=== PATIENT | female | born 1965 | race Caucasian/White ===

== ENCOUNTER 2017-01-17 17:21 | Emergency (ER) | payer BC ==
[2017-01-17 17:36] VITALS: BP 137/95
[2017-01-17] MEDS ORDERED: Sodium Chloride 0.9% 1,000 ML IV ONE (18:40)
[2017-01-17] MEDS ORDERED: Ondansetron 4 MG/2 ML SDV IVPUSH ONE (18:40)
[2017-01-17] MEDS ORDERED: Sodium Chloride 0.9% 10 ML Syringe FLUSH PRN (18:40)
[2017-01-17] MEDS ORDERED: Dicyclomine 10 MG Cap PO ONE (18:40)
--- NOTE | 2017-01-17 18:41 | EDM.PDOC ---
ED HPI GENERAL MEDICAL PROBLEM - General Chief Complaint: Abdominal Pain Stated Complaint: IBS Time Seen by Provider: 01/17/17 18:26 Source of Information: Reports: Patient History Limitations: Reports: No Limitations - History of Present Illness INITIAL COMMENTS - FREE TEXT/NARRATIVE: Patient is a 51-year-old female with history of IBS who presents to the ED complaining of abdominal cramping, nausea, and diarrhea today. Patient states symptoms started around 1:30 this afternoon and have progressively worsened. She took one levsin with no relief. Patient states over the past week she's had 2 additional episodes. She is complaining of generalized cramping with 5 episodes of diarrhea today. She's had no blood present. She is mildly dehydrated although her urine color is light yellow in color. She is very nauseated and has had little oral intake. Symptoms are consistent with previous episodes of IBS flareups. Denies fever/chills, shortness of breath, chest pain, emesis, pain with urination, dizziness, or any additional complaints. Lower Abdomen Pain Score (Numeric/FACES): 4 - Related Data Allergies Allergy/AdvReac Type Severity Reaction Status Date / Time No Known Allergies Allergy Verified 01/17/17 17:36 Home Meds: Home Meds DULoxetine HCl [Cymbalta] 60 mg PO DAILY 06/22/14 [History] Hyoscyamine Sulfate [Hyoscyamine Sulfate] 0.125 mg SL Q4H PRN 06/23/14 [History] Chlorthalidone 25 mg PO DAILY 11/23/14 [History] DULoxetine [Cymbalta] 30 mg PO DAILY 11/23/14 [History] Potassium Chloride [Klor-Con M20] 20 meq PO DAILY 09/12/15 [History] buPROPion [Wellbutrin XL] 150 mg PO DAILY 10/19/16 [History] Dicyclomine HCl [Bentyl] 10 mg PO TID PRN #10 capsule 01/17/17 [Rx] Ondansetron [Zofran ODT] 4 mg PO Q6H PRN #10 tab.dis 01/17/17 [Rx] Past Medical History HEENT History: Reports: Cataract Cardiovascular History: Reports: Hypertension Gastrointestinal History: Reports: Irritable Bowel Syndrome 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 History: Reports: Endometriosis Musculoskeletal History: Reports: Osteoarthritis Psychiatric History: Reports: Anxiety, Depression - Past Surgical History HEENT Surgical History: Reports: Cataract Surgery, Other (See Below) Musculoskeletal Surgical History: Reports: Arthroscopic Knee, Shoulder Surgery Social & Family History - Tobacco Use Smoking Status *Q: Current Some Day Smoker Years of Tobacco use: 25 Packs/Tins Daily: 0.1 Used Tobacco, but Quit: No Second Hand Smoke Exposure: Yes - Caffeine Use Caffeine Use: Reports: Coffee, Soda - Alcohol Use Days Per Week of Alcohol Use: 0 - Recreational Drug Use Recreational Drug Use: No Drug Use in Last 12 Months: No - Living Situation & Occupation Living situation: Reports: , with Family ED ROS GENERAL - Review of Systems Review Of Systems: ROS reveals no pertinent complaints other than HPI. ED EXAM, GI/ABD - Physical Exam Exam: See Below Exam Limited By: No Limitations General Appearance: Alert, WD/WN, No Apparent Distress Ears: Hearing Grossly Normal Nose: Normal Inspection Throat/Mouth: Normal Inspection, Normal Oropharynx, Normal Voice, No Airway Compromise Neck: Normal Inspection, Supple Respiratory/Chest: No Respiratory Distress, Lungs Clear, Normal Breath Sounds, Chest Non-Tender Cardiovascular: Normal Peripheral Pulses, Regular Rate, Rhythm GI/Abdominal: Soft, Non-Tender, No Organomegaly, No Distention, Hyperactive Bowel Sounds. No: McBurney's Sign, Bolanos's Sign Back Exam: Normal Inspection. No: CVA Tenderness (L), CVA Tenderness (R) Neurological: Alert, Oriented, CN II-XII Intact, Normal Cognition, No Motor/ Sensory Deficits Psychiatric: Normal Affect, Normal Mood Skin Exam: Warm, Dry, Intact, Normal Color Course - Vital Signs Last Recorded V/S: Last Vital Signs Temp 98.2 F 01/17/17 17:31 Pulse 89 01/17/17 17:31 Resp 16 01/17/17 17:31 BP 137/95 H 01/17/17 17:31 Pulse Ox 99 01/17/17 17:31 - Orders/Labs/Meds Orders: Active Orders 24 hr Category Date Time Status Peripheral IV Care [RC] . DIRECTED Care 01/17/17 18:40 Active Abdomen 2V AP Flat Upright [CR] Stat Exams 01/17/17 18:40 Taken Sodium Chloride 0.9% [Saline Flush] Med 01/17/17 18:40 Active 10 ml FLUSH ASDIRECTED PRN Peripheral IV Insertion Adult [OM.PC] Stat Oth 01/17/17 18:40 Ordered Medication Orders Sodium Chloride (Saline Flush) 10 ml FLUSH ASDIRECTED PRN PRN Reason: Keep Vein Open Last Admin: 01/17/17 18:49 Dose: 10 ml Labs: Laboratory Tests 01/17/17 01/17/17 01/17/17 Range/Units 17:40 17:40 19:12 WBC 12.65 H (3.98-10.04) K/mm3 RBC 4.85 (3.98-5.22) M/mm3 Hgb 14.0 (11.2-15.7) gm/L Hct 39.9 (34.1-44.9) % MCV 82.3 (79.4-94.8) fl MCH 28.9 (25.6-32.2) pg MCHC 35.1 (32.2-35.5) g/dl RDW Std Deviation 38.8 (36.4-46.3) fL Plt Count 415 H (182-369) K/mm3 MPV 10.0 (9.4-12.3) fl Neut % (Auto) 71.0 (34.0-71.1) % Lymph % (Auto) 18.7 L (19.3-51.7) % [place] % (Auto) 7.2 (4.7-12.5) % Eos % (Auto) 2.5 (0.7-5.8) Baso % (Auto) 0.4 (0.1-1.2) % Neut # (Auto) 8.98 H (1.56-6.13) K/mm3 Lymph # (Auto) 2.36 (1.18-3.74) K/mm3 [place] # (Auto) 0.91 H (0.24-0.36) K/mm3 Eos # (Auto) 0.32 (0.04-0.36) K/mm3 Baso # (Auto) 0.05 (0.01-0.08) K/mm3 Sodium 135 L (136-145) mEq/L Potassium 3.1 L (3.5-5.1) mEq/L Chloride 97 L (98-107) mEq/L Carbon Dioxide 23 (21-32) mEq/L Anion Gap 18.1 H (5-15) BUN 16 (7-18) mg/dL Creatinine 1.0 (0.55-1.02) mg/dL Est Cr Clr Drug Dosing 59.22 mL/min Estimated GFR (MDRD) 58 (>60) mL/min BUN/Creatinine Ratio 16.0 (14-18) Glucose 95 (74-106) mg/dL Calcium 9.2 (8.5-10.1) mg/dL Total Bilirubin 0.4 (0.2-1.0) mg/dL AST 25 (15-37) U/L ALT 34 (14-59) U/L Alkaline Phosphatase 76 (46-116) U/L C-Reactive Protein 0.5 (<1.0) mg/dL Total Protein 7.9 (6.4-8.2) g/dl Albumin 4.3 (3.4-5.0) g/dl Globulin 3.6 gm/dL Albumin/Globulin Ratio 1.2 (1-2) Lipase 64 L (73-393) U/L Urine Color Yellow (Yellow) Urine Appearance Clear (Clear) Urine pH 6.0 (5.0-8.0) Ur Specific [place] 1.015 (1.005-1.030) Urine Protein Negative (Negative) Urine Glucose (UA) Negative (Negative) Urine Ketones Negative (Negative) Urine Occult Blood Trace-intact H (Negative) Urine Nitrite Negative (Negative) Urine Bilirubin Negative (Negative) Urine Urobilinogen 0.2 (0.2-1.0) Ur Leukocyte Esterase Negative (Negative) Urine RBC 0-5 (0-5) /hpf Urine WBC 0-5 (0-5) /hpf Ur Epithelial Cells Not Reportable Ur Squamous Epith Cells 0-5 (0-5) /hpf Urine Bacteria Rare (FEW) /hpf Urine Mucus Not seen (FEW) /hpf Meds: Medications Generic Name Dose Route Start Last Admin Trade Name Freq PRN Reason Stop Dose Admin Sodium Chloride 10 ml 01/17/17 18:40 01/17/17 18:49 Saline Flush FLUSH 10 ml ASDIRECTED PRN Administration Keep Vein Open Discontinued Medications Generic Name Dose Route Start Last Admin Trade Name Freq PRN Reason Stop Dose Admin Dicyclomine HCl 20 mg 01/17/17 18:40 01/17/17 18:48 Bentyl PO 01/17/17 18:41 20 mg ONETIME ONE Administration Sodium Chloride 1,000 mls @ 999 mls/hr 01/17/17 18:40 01/17/17 18:47 Normal Saline IV 01/17/17 19:40 999 mls/hr ONETIME ONE Administration Ondansetron HCl 4 mg 01/17/17 18:40 01/17/17 18:48 Zofran IVPUSH 01/17/17 18:41 4 mg ONETIME ONE Administration Potassium Chloride 40 meq 01/17/17 20:57 01/17/17 21:17 Klor-Con M20 PO 01/17/17 20:58 40 meq ONETIME ONE Administration - Re-Assessments/Exams Free Text/Narrative Re-Assessment/Exam: 01/17/17 18:42 Ordered peripheral IV with normal saline 1000 mL, Bentyl 20 mg p.o., Zofran 4 mg IVP, CBC, chem 14, lipase, CRP, UA, and abdominal x-ray flat and upright. Abdominal xray reviewed with Dr. Jones, non specific air and stool pattern. No ileus present. Labs reviewed: WBC 12.65, sodium 135, potassium 3.1, creatinine 1.0, CRP less than 0.5, lipase 64, UA negative. 2058 Reassessment, pain and nausea was significantly improved with the above therapies. We'll discharge patient home pressure for Zofran and Bentyl. Departure - Departure Time of Disposition: 21:00 Disposition: Home, Self-Care 01 Condition: good Clinical Impression: Nausea, Hypokalemia IBS (irritable bowel syndrome) Qualifiers: Irritable bowel syndrome type: with diarrhea Qualified Code(s): K58.0 - Irritable bowel syndrome with diarrhea Abdominal pain Qualifiers: Abdominal location: generalized Qualified Code(s): R10.84 - Generalized abdominal pain - Discharge Information Prescriptions: Dicyclomine HCl [Bentyl] 10 mg PO TID PRN #10 capsule PRN Reason: Abdominal Pain Ondansetron [Zofran ODT] 4 mg PO Q6H PRN #10 tab.dis PRN Reason: Nausea Instructions: Abdominal Pain, Adult, [id number], Nausea and Vomiting, Adult, [id number] Referrals: Amanda Greco MD [Primary Care Provider] - Forms: ED Department Discharge Additional Instructions: Take the Bentyl and Zofran as prescribed. Advance diet as tolerated. Push fluids. Followup with primary care provider this coming week for reevaluation and treatment. Return to the ED for any new or worsening symptoms. - My Orders Last 24 Hours: My Active Orders 01/17/17 18:40 Peripheral IV Care [RC] . DIRECTED Abdomen 2V AP Flat Upright [CR] Stat Sodium Chloride 0.9% [Saline Flush] 10 ml FLUSH ASDIRECTED PRN Peripheral IV Insertion Adult [OM.PC] Stat - Assessment/Plan Last 24 Hours: My Active Orders 01/17/17 18:40 Peripheral IV Care [RC] . DIRECTED Abdomen 2V AP Flat Upright [CR] Stat Sodium Chloride 0.9% [Saline Flush] 10 ml FLUSH ASDIRECTED PRN Peripheral IV Insertion Adult [OM.PC] Stat
[2017-01-17] MEDS ORDERED: Potassium Chloride 20 MEQ Tab.ER PO ONE (20:57)
--- NOTE | 2017-01-19 07:40 | CR ---
Abdomen: Supine and upright views of the abdomen were obtained. Comparison: Previous abdominal x-ray of 10/19/16. Bowel gas pattern appears normal. No abnormal calcifications or soft tissue abnormality is seen. Bony structures appear within normal limits for the patient's age. Impression: 1. Nothing acute is identified on two-view abdominal x-ray. Diagnostic code #1
== END 2017-01-17 21:20 | disposition home or self-care (01) ==
LOC: JD.ED 17:21
DX: K58.0 Irritable bowel syndrome with diarrhea (principal); R11.0 Nausea; E87.6 Hypokalemia; I10 Essential (primary) hypertension; F41.8 Other specified anxiety disorders; F17.210 Nicotine dependence, cigarettes, uncomplicated; Z98.49 Cataract extraction status, unspecified eye; Z98.890 Other specified postprocedural states; Z79.899 Other long term (current) drug therapy
CPT/HCPCS: 36415; 74020; 80053; 81001; 83690; 85025; 86140; 96361; 96374; 99284; A9270; J2405; J7040; J7050

== ENCOUNTER 2017-06-17 14:58 | Emergency (ER) | payer BC ==
[2017-06-17 15:16] VITALS: BP 139/97
[2017-06-17] MEDS ORDERED: Lidocaine 1% 50 ML MDV INJECT ONE (15:40)
[2017-06-17] MEDS ORDERED: Diphtheria,Pertussis(Acell),Tetanus Vaccine 0.5 ML SDV IM ONE (16:40)
--- NOTE | 2017-06-17 16:45 | EDM.PDOC ---
ED HPI GENERAL MEDICAL PROBLEM - General Chief Complaint: Upper Extremity Injury/Pain Stated Complaint: CUT LEFT THUMB Time Seen by Provider: 06/17/17 15:36 Source of Information: Reports: Patient History Limitations: Reports: No Limitations - History of Present Illness INITIAL COMMENTS - FREE TEXT/NARRATIVE: The patient presents with a laceration to her left thumb. The patient cut it on a knife on Friday. Since then it has opened up many times. She is right handed. She is unsure of her tetanus. Onset: Sudden Duration: Day(s): (4) Location: Reports: Upper Extremity, Left (Thumb) Quality: Reports: Sharp Severity: Mild Improves with: Reports: None Worsens with: Reports: None Context: Reports: Activity (Cut it on a knife) Associated Symptoms: Reports: No Other Symptoms Left Hand Pain Score (Numeric/FACES): 1 - Related Data Allergies Allergy/AdvReac Type Severity Reaction Status Date / Time No Known Allergies Allergy Verified 06/17/17 15:09 Home Meds: Home Meds DULoxetine HCl [Cymbalta] 60 mg PO DAILY 06/22/14 [History] Hyoscyamine Sulfate [Hyoscyamine Sulfate] 0.125 mg SL Q4H PRN 06/23/14 [History] Chlorthalidone 25 mg PO DAILY 11/23/14 [History] DULoxetine [Cymbalta] 30 mg PO DAILY 11/23/14 [History] Potassium Chloride [Klor-Con M20] 20 meq PO DAILY 09/12/15 [History] buPROPion [Wellbutrin XL] 150 mg PO DAILY 10/19/16 [History] Dicyclomine HCl [Bentyl] 10 mg PO TID PRN #10 capsule 01/17/17 [Rx] Ondansetron [Zofran ODT] 4 mg PO Q6H PRN #10 tab.dis 01/17/17 [Rx] ALPRAZolam [Alprazolam] 06/17/17 [History] Cephalexin [Keflex] 500 mg PO Q6HR #20 cap 06/17/17 [Rx] ClonazePAM [KlonoPIN] 0.25 mg PO TID 06/17/17 [History] Diazepam [Valium] 10 mg PO ASDIRECTED PRN 06/17/17 [History] Past Medical History HEENT History: Reports: Cataract Cardiovascular History: Reports: Hypertension Gastrointestinal History: Reports: Irritable Bowel Syndrome 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: Reports: Endometriosis Musculoskeletal History: Reports: Osteoarthritis Psychiatric History: Reports: Anxiety, Depression - Past Surgical History HEENT Surgical History: Reports: Cataract Surgery, Other (See Below) Musculoskeletal Surgical History: Reports: Arthroscopic Knee, Shoulder Surgery Social & Family History - Tobacco Use Smoking Status *Q: Current Some Day Smoker Years of Tobacco use: 25 Packs/Tins Daily: 0.1 Used Tobacco, but Quit: No Second Hand Smoke Exposure: Yes - Caffeine Use Caffeine Use: Reports: Coffee, Soda - Alcohol Use Days Per Week of Alcohol Use: 0 - Recreational Drug Use Recreational Drug Use: No Drug Use in Last 12 Months: No - Living Situation & Occupation Living situation: Reports: , with Family Review of Systems - Review of Systems Review Of Systems: See Below Constitutional: Reports: No Symptoms Eyes: Reports: No Symptoms Ears: Reports: No Symptoms Nose: Reports: No Symptoms Mouth/Throat: Reports: No Symptoms Respiratory: Reports: No Symptoms Cardiovascular: Reports: No Symptoms GI/Abdominal: Reports: No Symptoms Genitourinary: Reports: No Symptoms Musculoskeletal: Reports: Other (Laceration left thumb) ED EXAM, GENERAL - Physical Exam Exam: See Below Exam Limited By: No Limitations General Appearance: Alert, No Apparent Distress Ears: Normal External Exam Nose: Normal Inspection Head: Atraumatic, Normocephalic Respiratory/Chest: No Respiratory Distress Extremities: Other (1cm laceration to the left thumb. Good sensation and pulses distally.) ED TRAUMA EXTREMITY PROCEDURES - Laceration/Wound Repair Left Finger Lac/Wound Length In cm: 1 Appearance: Subcutaneous, Linear Distal NVT: Neuro & Vascular Intact, No Tendon Injury Anesthetic Type: Local Local Anesthesia - Lidocaine (Xylocaine): 1% Plain Local Anesthetic Volume: 2cc Exploration/Debridement/Repair: Wound Explored, In a Bloodless Field, Explored to Base Closed With: Sutures Suture Size: 4-0 # of Sutures: 2 Suture Type: Nylon, Interrupted, Simple Tetanus Status Addressed: Yes Complications: No Course - Vital Signs Last Recorded V/S: Last Vital Signs Temp 97.3 F 06/17/17 15:13 Pulse 100 06/17/17 15:13 Resp 17 06/17/17 15:13 BP 139/97 H 06/17/17 15:13 Pulse Ox 98 06/17/17 15:13 - Orders/Labs/Meds Meds: Medications Discontinued Medications Generic Name Dose Route Start Last Admin Trade Name Adwoa PRN Reason Stop Dose Admin Lidocaine HCl 50 ml 06/17/17 15:40 06/17/17 16:17 Xylocaine 1% INJECT 06/17/17 15:41 50 ml ONETIME ONE Administration - Re-Assessments/Exams Free Text/Narrative Re-Assessment/Exam: 06/17/17 16:44 I closed the wound. I also updated her tetanus. This was a delayed closure. I will get her on some keflex for 5 days to avoid infection. Departure - Departure Time of Disposition: 16:45 Disposition: Home, Self-Care 01 Condition: Good Clinical Impression: Laceration of left thumb Qualifiers: Encounter type: initial encounter Damage to nail status: without damage Foreign body presence: without foreign body Qualified Code(s): S61.012A - Laceration without foreign body of left thumb without damage to nail, initial encounter - Discharge Information Prescriptions: Cephalexin [Keflex] 500 mg PO Q6HR #20 cap Referrals: Amanda Greco MD [Primary Care Provider] - 1 Week Additional Instructions: Soak your finger in warm soapy water 2 times per day and apply antibiotic ointment after. Take the keflex 4 times per day for 5 days. Have the sutures out in 1 week. Look for any signs of infection such as redness, pain, drainage or swelling.
== END 2017-06-17 16:55 | disposition home or self-care (01) ==
LOC: JD.ED 14:58
DX: S61.012A Laceration without foreign body of left thumb without damage to nail, initial encounter (principal); Z23 Encounter for immunization; I10 Essential (primary) hypertension; M19.90 Unspecified osteoarthritis, unspecified site; F32.9 Major depressive disorder, single episode, unspecified; Z98.49 Cataract extraction status, unspecified eye; Z98.890 Other specified postprocedural states; F17.210 Nicotine dependence, cigarettes, uncomplicated; Z79.899 Other long term (current) drug therapy; W26.0XXA Contact with knife, initial encounter
CPT/HCPCS: 12001; 90471; 90715; 99283-25

== ENCOUNTER 2017-11-05 15:58 | Emergency (ER) | payer BC ==
[2017-11-05 16:17] VITALS: BP 134/105
--- NOTE | 2017-11-05 17:22 | EDM.PDOC ---
ED HPI GENERAL MEDICAL PROBLEM - General Chief Complaint: Abdominal Pain Stated Complaint: IBS ATTACK Time Seen by Provider: 11/05/17 17:02 Source of Information: Reports: Patient - History of Present Illness INITIAL COMMENTS - FREE TEXT/NARRATIVE: Patient is here today for a flare of her IBS. She states that she has been under a significant amount of stress recently as her has been hospitalized in [place]. Patient states that she has had lower abdominal cramping and loose stools and nausea since Friday, states that today she is having significantly more and isn't tolerating fluids well states that she feels the roaring "right through me". Patient has a long-standing history of IBS. She did take her Bentyl and her hycosamine today and had little improvement with this. She denies any fever or chills. She did eat some toast this morning but has not been able to tolerate solid foods throughout the day. Lower Abdomen Pain Score (Numeric/FACES): 4 - Related Data Allergies Allergy/AdvReac Type Severity Reaction Status Date / Time No Known Allergies Allergy Verified 11/05/17 16:17 Home Meds: Home Meds DULoxetine HCl [Cymbalta] 60 mg PO DAILY 06/22/14 [History] Chlorthalidone 25 mg PO DAILY 11/23/14 [History] DULoxetine [Cymbalta] 30 mg PO DAILY 11/23/14 [History] Potassium Chloride [Klor-Con M20] 20 meq PO DAILY 09/12/15 [History] buPROPion [Wellbutrin XL] 150 mg PO DAILY 10/19/16 [History] Ondansetron [Zofran ODT] 4 mg PO Q6H PRN #10 tab.dis 01/17/17 [Rx] ClonazePAM [KlonoPIN] 0.25 mg PO TID 06/17/17 [History] Dicyclomine HCl [Bentyl] 10 mg PO QID PRN 11/05/17 [History] Fluticasone Propionate [Flonase] 1 spray WILLIAM DAILY 11/05/17 [History] Past Medical History HEENT History: Reports: Cataract Cardiovascular History: Reports: Hypertension Gastrointestinal History: Reports: Irritable Bowel Syndrome 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 Musculoskeletal History: Reports: Osteoarthritis Psychiatric History: Reports: Anxiety, Depression - Past Surgical History HEENT Surgical History: Reports: Cataract Surgery, Other (See Below) Musculoskeletal Surgical History: Reports: Arthroscopic Knee, Shoulder Surgery Social & Family History - Tobacco Use Smoking Status *Q: Never Smoker Years of Tobacco use: 25 Packs/Tins Daily: 0.1 Used Tobacco, but Quit: No Second Hand Smoke Exposure: Yes - Caffeine Use Caffeine Use: Reports: Coffee - Alcohol Use Days Per Week of Alcohol Use: 0 - Recreational Drug Use Recreational Drug Use: No Drug Use in Last 12 Months: No - Living Situation & Occupation Living situation: Reports: , with Family ED ROS GENERAL - Review of Systems Review Of Systems: See Below Constitutional: Reports: Decreased Appetite. Denies: Fever, Chills, Malaise, Weakness, Fatigue HEENT: Reports: No Symptoms Respiratory: Reports: No Symptoms Cardiovascular: Reports: No Symptoms GI/Abdominal: Reports: Abdominal Pain, Decreased Appetite, Nausea, Vomiting. Denies: Anorexia Musculoskeletal: Reports: No Symptoms Skin: Reports: No Symptoms Neurological: Reports: No Symptoms Psychiatric: Reports: No Symptoms ED EXAM, GI/ABD - Physical Exam Exam: See Below Exam Limited By: No Limitations General Appearance: Alert, WD/WN, No Apparent Distress Throat/Mouth: Normal Inspection, Normal Lips, Normal Oropharynx Head: Atraumatic, Normocephalic Neck: Normal Inspection, Supple, Non-Tender Respiratory/Chest: No Respiratory Distress, Lungs Clear, Normal Breath Sounds Cardiovascular: Normal Peripheral Pulses, Regular Rate, Rhythm, No Murmur GI/Abdominal Exam: Normal Bowel Sounds, Soft, Tender (Mild lower abdominal tenderness bilaterally) Extremities: Normal Inspection, Normal Range of Motion Neurological: Alert, Oriented, CN II-XII Intact, No Motor/Sensory Deficits Psychiatric: Normal Affect, Normal Mood Skin Exam: Warm, Dry, Intact Course - Vital Signs Last Recorded V/S: Last Vital Signs Temp 97.6 F 11/05/17 16:14 Pulse 97 11/05/17 16:14 Resp 16 11/05/17 16:14 BP 134/105 H 11/05/17 16:14 Pulse Ox 98 11/05/17 16:14 - Orders/Labs/Meds Labs: Laboratory Tests 11/05/17 11/05/17 11/05/17 Range/Units 16:25 16:25 16:25 WBC 9.13 (3.98-10.04) K/mm3 RBC 4.92 (3.98-5.22) M/mm3 Hgb 13.9 (11.2-15.7) gm/L Hct 40.5 (34.1-44.9) % MCV 82.3 (79.4-94.8) fl MCH 28.3 (25.6-32.2) pg MCHC 34.3 (32.2-35.5) g/dl RDW Std Deviation 40.0 (36.4-46.3) fL Plt Count 387 H (182-369) K/mm3 MPV 9.3 L (9.4-12.3) fl Neutrophils % (Manual) 76 H (40-60) % Band Neutrophils % 1 (0-10) % Lymphocytes % (Manual) 19 L (20-40) % Atypical Lymphs % 0 % Monocytes % (Manual) 4 (2-10) % Eosinophils % (Manual) 0 L (0.7-5.8) % Basophils % (Manual) 0 L (0.1-1.2) Platelet Estimate Adequate RBC Morph Comment Normal Sodium 133 L (136-145) mEq/L Potassium 3.2 L (3.5-5.1) mEq/L Chloride 96 L (98-107) mEq/L Carbon Dioxide 26 (21-32) mEq/L Anion Gap 14.2 (5-15) BUN 17 (7-18) mg/dL Creatinine 0.9 (0.55-1.02) mg/dL Est Cr Clr Drug Dosing 65.80 mL/min Estimated GFR (MDRD) > 60 (>60) mL/min BUN/Creatinine Ratio 18.9 H (14-18) Glucose 95 (74-106) mg/dL Calcium 9.0 (8.5-10.1) mg/dL Total Bilirubin 0.3 (0.2-1.0) mg/dL AST 19 (15-37) U/L ALT 30 (14-59) U/L Alkaline Phosphatase 100 (46-116) U/L C-Reactive Protein 1.4 H* (<1.0) mg/dL Total Protein 7.9 (6.4-8.2) g/dl Albumin 3.8 (3.4-5.0) g/dl Globulin 4.1 gm/dL Albumin/Globulin Ratio 0.9 L (1-2) Lipase 64 L (73-393) U/L Urine Color (Yellow) Urine Appearance (Clear) Urine pH (5.0-8.0) Ur Specific [place] (1.005-1.030) Urine Protein (Negative) Urine Glucose (UA) (Negative) Urine Ketones (Negative) Urine Occult Blood (Negative) Urine Nitrite (Negative) Urine Bilirubin (Negative) Urine Urobilinogen (0.2-1.0) Ur Leukocyte Esterase (Negative) Urine RBC (0-5) /hpf Urine WBC (0-5) /hpf Ur Epithelial Cells (0-5) /hpf Urine Bacteria (FEW) /hpf Urine Mucus (FEW) /hpf Urine HCG, Qual (NEGATIVE) 11/05/17 11/05/17 Range/Units 17:35 17:35 WBC (3.98-10.04) K/mm3 RBC (3.98-5.22) M/mm3 Hgb (11.2-15.7) gm/L Hct (34.1-44.9) % MCV (79.4-94.8) fl MCH (25.6-32.2) pg MCHC (32.2-35.5) g/dl RDW Std Deviation (36.4-46.3) fL Plt Count (182-369) K/mm3 MPV (9.4-12.3) fl Neutrophils % (Manual) (40-60) % Band Neutrophils % (0-10) % Lymphocytes % (Manual) (20-40) % Atypical Lymphs % % Monocytes % (Manual) (2-10) % Eosinophils % (Manual) (0.7-5.8) % Basophils % (Manual) (0.1-1.2) Platelet Estimate RBC Morph Comment Sodium (136-145) mEq/L Potassium (3.5-5.1) mEq/L Chloride (98-107) mEq/L Carbon Dioxide (21-32) mEq/L Anion Gap (5-15) BUN (7-18) mg/dL Creatinine (0.55-1.02) mg/dL Est Cr Clr Drug Dosing mL/min Estimated GFR (MDRD) (>60) mL/min BUN/Creatinine Ratio (14-18) Glucose (74-106) mg/dL Calcium (8.5-10.1) mg/dL Total Bilirubin (0.2-1.0) mg/dL AST (15-37) U/L ALT (14-59) U/L Alkaline Phosphatase (46-116) U/L C-Reactive Protein (<1.0) mg/dL Total Protein (6.4-8.2) g/dl Albumin (3.4-5.0) g/dl Globulin gm/dL Albumin/Globulin Ratio (1-2) Lipase (73-393) U/L Urine Color Yellow (Yellow) Urine Appearance Clear (Clear) Urine pH 7.0 (5.0-8.0) Ur Specific Arrey 1.015 (1.005-1.030) Urine Protein Negative (Negative) Urine Glucose (UA) Negative (Negative) Urine Ketones Negative (Negative) Urine Occult Blood Trace-intact H (Negative) Urine Nitrite Negative (Negative) Urine Bilirubin Negative (Negative) Urine Urobilinogen 0.2 (0.2-1.0) Ur Leukocyte Esterase Negative (Negative) Urine RBC 0-5 (0-5) /hpf Urine WBC 0-5 (0-5) /hpf Ur Epithelial Cells 0-5 (0-5) /hpf Urine Bacteria Few (FEW) /hpf Urine Mucus Not seen (FEW) /hpf Urine HCG, Qual Negative (NEGATIVE) Meds: Medications Discontinued Medications Generic Name Dose Route Start Last Admin Trade Name Freq PRN Reason Stop Dose Admin Hydromorphone HCl 0.5 mg 11/05/17 17:43 11/05/17 17:55 Dilaudid IVPUSH 11/05/17 17:44 0.5 mg ONETIME ONE Administration Sodium Chloride 1,000 mls @ 999 mls/hr 11/05/17 17:21 11/05/17 17:36 Normal Saline IV 11/05/17 18:21 999 mls/hr ONETIME ONE Administration Ondansetron HCl 4 mg 11/05/17 17:21 11/05/17 17:37 Zofran IVPUSH 11/05/17 17:22 4 mg ONETIME ONE Administration - Re-Assessments/Exams Free Text/Narrative Re-Assessment/Exam: WBC 9130 with 76% neutrophils 1% bands. CRP 1.4. Not acute abdomen and her symptoms are consistent with her repeat IBS flares. She has been under a significant amount stress recently. Patient had complete resolution in pain with 0.5 mg Dilaudid and 1 L normal saline fluids. She is tolerating oral fluids adequately. Sodium is decreased at 133, potassium is decreased to 3.2. Will have her take her potassium supplement twice a day 4 days and she will recheck with her primary provider on Friday. Advised patient to increase oral fluid intake and take all medications as prescribed. She may advance to solid foods again tomorrow with very bland diet, no sugar/ spice/dairy foods. She is to follow-up with her primary provider in 2-3 days or certainly return to the emergency room if needed. 11/05/17 19:11 Departure - Departure Time of Disposition: 19:06 Disposition: Home, Self-Care 01 Condition: Good Clinical Impression: Hypokalemia IBS (irritable bowel syndrome) Qualifiers: Irritable bowel syndrome type: with diarrhea Qualified Code(s): K58.0 - Irritable bowel syndrome with diarrhea - Discharge Information Referrals: Amanda Greco MD [Primary Care Provider] - Forms: ED Department Discharge Additional Instructions: Maximize oral fluids. [place] diet as tolerated, no sugar/spicy/dairy. Take your potassium supplement 2 times daily and follow up with your primary provider in 3-4 days to have your labs rechecked. Certainly return to the emergency room if any worsening of symptoms or if you' re not tolerating oral fluids.
[2017-11-05] MEDS: Sodium Chloride 0.9% 1,000 ML IV ONE (17:36)
[2017-11-05] MEDS: Ondansetron 4 MG/2 ML SDV IVPUSH ONE (17:37)
[2017-11-05] MEDS: HYDROmorphone 0.5 MG/0.5 ML SYRINGE IVPUSH ONE (17:55)
== END 2017-11-05 19:25 | disposition home or self-care (01) ==
LOC: JD.ED 15:58
DX: E87.6 Hypokalemia (principal); K58.0 Irritable bowel syndrome with diarrhea; I10 Essential (primary) hypertension; Z79.899 Other long term (current) drug therapy
CPT/HCPCS: 36415; 80053; 81001; 81025; 83690; 85025; 86140; 96361; 96374; 96375; 99284; J1170; J2405; J7040

== ENCOUNTER 2017-11-20 11:19 | Emergency (ER) | payer BC ==
[2017-11-20 11:34] VITALS: BP 146/111
[2017-11-20] MEDS: Sodium Chloride 0.9% 1,000 ML IV ONE (12:26)
[2017-11-20] MEDS: Ketorolac 30 MG/ML SDV IVPUSH ONE (12:27)
[2017-11-20] MEDS: Ondansetron 4 MG/2 ML SDV IVPUSH ONE (12:27)
--- NOTE | 2017-11-20 12:30 | EDM.PDOC ---
ED HPI GENERAL MEDICAL PROBLEM - General Chief Complaint: Abdominal Pain Stated Complaint: IBS FLARE UP Time Seen by Provider: 11/20/17 11:34 Source of Information: Reports: Patient History Limitations: Reports: No Limitations - History of Present Illness INITIAL COMMENTS - FREE TEXT/NARRATIVE: 51 y/o F with hx IBS presents with flare. She's been under a lot of stress due to 's health problems and thinks this provoked it. Was recently at [place] with her and had an episode of diarrhea/incontinence. Has been taking her usual meds but has bad nausea and abdominal cramping today. States diarrhea has resolved. No vomiting but too nauseated to eat. Used her last ondansetron today, it hasn't helped her nausea much. No fever. Mild abdominal cramping/ discomfort, but she is more bothered by the nausea. No fever. No dysuria. No cough/chest pain. lower abdomen\ Pain Score (Numeric/FACES): 4 - Related Data Allergies Allergy/AdvReac Type Severity Reaction Status Date / Time No Known Allergies Allergy Verified 11/20/17 11:34 Home Meds: Home Meds DULoxetine HCl [Cymbalta] 60 mg PO DAILY 06/22/14 [History] Chlorthalidone 25 mg PO DAILY 11/23/14 [History] DULoxetine [Cymbalta] 30 mg PO DAILY 11/23/14 [History] Potassium Chloride [Klor-Con M20] 20 meq PO DAILY 09/12/15 [History] buPROPion [Wellbutrin XL] 150 mg PO DAILY 10/19/16 [History] Ondansetron [Zofran ODT] 4 mg PO Q6H PRN #10 tab.dis 01/17/17 [Rx] ClonazePAM [KlonoPIN] 0.25 mg PO TID 06/17/17 [History] Dicyclomine HCl [Bentyl] 10 mg PO QID PRN 11/05/17 [History] Fluticasone Propionate [Flonase] 1 spray WILLIAM DAILY 11/05/17 [History] Loratadine 10 mg PO DAILY 11/20/17 [History] Ondansetron [Ondansetron ODT] 4 mg PO Q6H PRN #30 tab.rapdis 11/20/17 [Rx] Past Medical History HEENT History: Reports: Cataract Cardiovascular History: Reports: Hypertension Respiratory History: Reports: Other (See Below) Other Respiratory History: allergic rhinitis Gastrointestinal History: Reports: Irritable Bowel Syndrome 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 Musculoskeletal History: Reports: Osteoarthritis Psychiatric History: Reports: Anxiety, Depression Endocrine/Metabolic History: Reports: Obesity/BMI 30+ - Past Surgical History HEENT Surgical History: Reports: Cataract Surgery Musculoskeletal Surgical History: Reports: Arthroscopic Knee, Shoulder Surgery Social & Family History - Family History Family Medical History: Noncontributory - Tobacco Use Smoking Status *Q: Never Smoker Years of Tobacco use: 25 Packs/Tins Daily: 0.1 Used Tobacco, but Quit: No Second Hand Smoke Exposure: Yes - Caffeine Use Caffeine Use: Reports: Soda - Alcohol Use Days Per Week of Alcohol Use: 0 - Recreational Drug Use Recreational Drug Use: No Drug Use in Last 12 Months: No - Living Situation & Occupation Living situation: Reports: , with Family ED ROS GENERAL - Review of Systems Review Of Systems: See Below Constitutional: Reports: Malaise, Fatigue. Denies: Fever HEENT: Reports: No Symptoms Respiratory: Denies: Shortness of Breath Cardiovascular: Denies: Chest Pain GI/Abdominal: Reports: Nausea : Denies: Dysuria Psychiatric: Reports: Anxiety ED EXAM, GI/ABD - Physical Exam Exam: See Below Exam Limited By: No Limitations General Appearance: Alert, WD/WN, No Apparent Distress Ears: Normal External Exam Nose: Normal Inspection Throat/Mouth: Normal Inspection, Normal Oropharynx, Normal Voice Head: Atraumatic, Normocephalic Neck: Normal Inspection, Supple, Non-Tender, Full Range of Motion Respiratory/Chest: No Respiratory Distress, Lungs Clear, Normal Breath Sounds, Chest Non-Tender Cardiovascular: Normal Peripheral Pulses, Regular Rate, Rhythm, No Murmur GI/Abdominal Exam: Soft, Non-Tender, No Distention. No: Guarding Extremities: Normal Inspection Neurological: Alert, Oriented, Normal Cognition, No Motor/Sensory Deficits Psychiatric: Normal Affect, Normal Mood Skin Exam: Warm, Dry, Intact, Normal Color, No Rash Course - Vital Signs Last Recorded V/S: Last Vital Signs Temp 36.6 C 11/20/17 11:28 Pulse 72 11/20/17 11:28 Resp 18 11/20/17 11:28 BP 146/111 H 11/20/17 11:28 Pulse Ox 98 11/20/17 11:28 - Orders/Labs/Meds Meds: Medications Discontinued Medications Generic Name Dose Route Start Last Admin Trade Name Freq PRN Reason Stop Dose Admin Promethazine HCl 25 mg/ Sodium 51 mls @ 100 mls/hr 11/20/17 11:58 11/20/17 12 :42 Chloride IV 11/20/17 12:28 100 mls/hr ONETIME ONE Administration Sodium Chloride 1,000 mls @ 1,000 mls/hr 11/20/17 11:58 11/20/17 12:26 Normal Saline IV 11/20/17 12:57 1,000 mls/hr ONETIME ONE Administration Ketorolac Tromethamine 30 mg 11/20/17 11:58 11/20/17 12:27 Toradol IVPUSH 11/20/17 11:59 30 mg ONETIME ONE Administration Ondansetron HCl 4 mg 11/20/17 11:58 11/20/17 12:27 Zofran IVPUSH 11/20/17 11:59 4 mg ONETIME ONE Administration - Re-Assessments/Exams Free Text/Narrative Re-Assessment/Exam: 11/20/17 12:29 Well appearing, benign exam, has PCP appointment tomorrow to further address. She is nontender and quite well appearing at this time, mostly concerned about nausea though she hasn't vomited. Therefore will forego labs for now. Meds ordered, will reassess. 11/20/17 14:49 [place] much better after phenergan, symptoms nearly resolved. She feels ready to go home. Will refill ondansetron, encouraged her to discuss her medications with PCP tomorrow at her scheduled appointment. Departure - Departure Time of Disposition: 14:00 Disposition: Home, Self-Care 01 Clinical Impression: Nausea, Abdominal pain IBS (irritable bowel syndrome) Qualifiers: Irritable bowel syndrome type: with diarrhea Qualified Code(s): K58.0 - Irritable bowel syndrome with diarrhea - Discharge Information Prescriptions: Ondansetron [Ondansetron ODT] 4 mg PO Q6H PRN #30 tab.rapdis PRN Reason: Nausea Instructions: Irritable Bowel Syndrome, Adult Referrals: Amanda Greco MD [Primary Care Provider] - Forms: ED Department Discharge Additional Instructions: 1. Continue to take your usual medications for IBS 2. Clear liquid diet today 3. Follow up with your primary care provider tomorrow as planned for further care 4. Return to the ED if you have severe pain, vomiting without keeping liquids down, fever, or other concerning symptoms
[2017-11-20] MEDS: Promethazine 25 MG in Sodium Chloride 0.9% 50 ML IV ONE (12:42)
== END 2017-11-20 14:15 | disposition home or self-care (01) ==
LOC: JD.ED 11:19
DX: K58.0 Irritable bowel syndrome with diarrhea (principal); R11.0 Nausea; I10 Essential (primary) hypertension; E66.9 Obesity, unspecified; Z79.899 Other long term (current) drug therapy
CPT/HCPCS: 96361; 96365; 96375; 99284; J1885; J2405; J2550; J7040; J7050

== ENCOUNTER 2018-09-05 11:39 | Emergency (ER) | payer BC, OTHER ==
[2018-09-05 11:55] VITALS: BP 135/94
--- NOTE | 2018-09-05 12:10 | EDM.PDOC ---
ED HPI GENERAL MEDICAL PROBLEM - General Chief Complaint: Lower Extremity Injury/Pain Stated Complaint: FALL LT KNEE INJURY Time Seen by Provider: 09/05/18 12:09 Source of Information: Reports: Patient - History of Present Illness INITIAL COMMENTS - FREE TEXT/NARRATIVE: Patient is here for left knee injury that occurred this morning just prior to arrival. She states that a permanent fallen at home and she tripped over this and landed pretty much directly on her left knee. History of left TKR last March. Has not had any issues with that prior to today. She states that since the fall she has had swelling, pain. She is able to bear weight but has pain shooting down her left lower leg with this. She has history of HTN, no history of renal disease. She is not on blood thinners. Has not taken anything for the pain. She is having some nausea associated with her pain. Left Knee Pain Score (Numeric/FACES): 6 - Related Data Allergies Allergy/AdvReac Type Severity Reaction Status Date / Time No Known Allergies Allergy Verified 07/22/18 13:33 Home Meds: Home Meds Chlorthalidone 25 mg PO DAILY 11/23/14 [History] DULoxetine [Cymbalta] 90 mg PO DAILY 11/23/14 [History] Potassium Chloride [Klor-Con M20] 20 meq PO DAILY 09/12/15 [History] buPROPion [Wellbutrin XL] 150 mg PO DAILY 10/19/16 [History] ClonazePAM [KlonoPIN] 0.25 mg PO TID 06/17/17 [History] Dicyclomine HCl [Bentyl] 10 mg PO QID PRN 11/05/17 [History] Fluticasone Propionate [Flonase] 1 spray WILLIAM DAILY 11/05/17 [History] Ondansetron [Zofran ODT] 4 mg PO Q6H PRN #20 tab.dis 07/22/18 [Rx] Hydrocodone/Acetaminophen [Hydrocodon-Acetaminophen 5-325] 1 each PO Q6HR PRN # 10 tablet 09/05/18 [Rx] Loratadine/Pseudoephedrine [Claritin-D 24 Hour Tablet] 1 tab PO DAILY 09/05/18 [ History] Past Medical History HEENT History: Reports: Cataract Cardiovascular History: Reports: Hypertension Respiratory History: Reports: Other (See Below) Other Respiratory History: seasonal allergies Gastrointestinal History: Reports: Irritable Bowel Syndrome 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 Musculoskeletal History: Reports: Osteoarthritis Psychiatric History: Reports: Anxiety, Depression Endocrine/Metabolic History: Reports: Obesity/BMI 30+ - Past Surgical History HEENT Surgical History: Reports: Cataract Surgery Cardiovascular Surgical History: Reports: None Respiratory Surgical History: Reports: None GI Surgical History: Reports: None Musculoskeletal Surgical History: Reports: Knee Replacement, Shoulder Surgery, Other (See Below) Other Musculoskeletal Surgeries/Procedures:: left knee replacement Social & Family History - Family History Family Medical History: Noncontributory - Tobacco Use Smoking Status *Q: Current Status Unknown - Caffeine Use Caffeine Use: Reports: Soda, Tea - Recreational Drug Use Recreational Drug Use: No - Living Situation & Occupation Living situation: Reports: , with Family Review of Systems - Review of Systems Review Of Systems: See Below Constitutional: Reports: No Symptoms GI/Abdominal: Reports: Nausea (Nausea associated with her pain). Denies: Abdominal Pain Musculoskeletal: Reports: Joint Pain (Left knee pain and swelling) Skin: Denies: Bruising, Wound Neurological: Reports: No Symptoms Psychiatric: Reports: No Symptoms ED EXAM, GENERAL - Physical Exam Exam: See Below Exam Limited By: No Limitations General Appearance: Alert, WD/WN, No Apparent Distress Cardiovascular: Normal Peripheral Pulses Extremities: Other (Left knee with moderate swelling, no ecchymosis/erythema/ wound noted. Full range of motion, does have pain anteriorly with flexion. Anterior/posterior drawer negative. No laxity with varus or valgus stress.) Neurological: Alert, Oriented, No Motor/Sensory Deficits Psychiatric: Normal Affect, Normal Mood Skin Exam: Warm, Dry, Intact, Other (Well-healed vertical surgical incision over the left knee.) Course - Vital Signs Last Recorded V/S: Last Vital Signs Temp 98.1 F 09/05/18 11:53 Pulse 85 09/05/18 11:53 Resp 20 09/05/18 11:53 BP 135/94 H 09/05/18 11:53 Pulse Ox 94 L 09/05/18 11:53 - Orders/Labs/Meds Orders: Active Orders 24 hr Category Date Time Status Knee 3V Lt [CR] Stat Exams 09/05/18 12:19 Taken Meds: Medications Discontinued Medications Generic Name Dose Route Start Last Admin Trade Name Freq PRN Reason Stop Dose Admin Hydrocodone Bitart/Acetaminophen 1 tab 09/05/18 13:05 09/05/18 13:10 Joaquin 325-5 Mg PO 09/05/18 13:06 1 tab ONETIME ONE Administration Ibuprofen 600 mg 09/05/18 12:19 09/05/18 12:24 Motrin PO 09/05/18 12:20 600 mg ONETIME ONE Administration Ondansetron HCl 4 mg 09/05/18 12:19 09/05/18 12:24 Zofran Odt PO 09/05/18 12:20 4 mg ONETIME ONE Administration - Re-Assessments/Exams Free Text/Narrative Re-Assessment/Exam: Will get x-ray of patient's left knee and apply some ice. Ibuprofen for the pain and inflammation and Zofran for her current nausea. 09/05/18 13:04 No fracture noted on x-ray, hardware appears to be in good position. Patient will be discharged home, she has crutches at home and will try to stay off of her left lower extremity for a few days. Ice 15 minutes every few hours , ibuprofen as needed for the pain and Joaquin will be given for the breakthrough pain. If not mostly improved fairly next week she'll follow with her orthopedic provider. She'll return to the emergency department for any new or worsening symptoms. 09/05/18 13:15 Departure - Departure Time of Disposition: 13:16 Disposition: Home, Self-Care 01 Condition: Good Clinical Impression: History of total left knee replacement (TKR) Knee injury Qualifiers: Encounter type: initial encounter Laterality: left Qualified Code(s): S89.92XA - Unspecified injury of left lower leg, initial encounter - Discharge Information Prescriptions: Hydrocodone/Acetaminophen [Hydrocodon-Acetaminophen 5-325] 1 each PO Q6HR PRN # 10 tablet PRN Reason: Pain Instructions: Crutch Use, Adult, [id number], Knee Pain, Adult Referrals: Amanda Greco MD [Primary Care Provider] - Forms: ED Department Discharge Additional Instructions: You were evaluated in the emergency department today for an injury to your left knee. X-ray demonstrated no fracture and the hardware is in good position. I recommend that you take it easy for the next few days, use the crutches that you have at home to stay off of this. Take ibuprofen 600 mg 3 times daily and the Joaquin pain medication as needed for breakthrough pain. Ice 15 minutes every hour today, 15 minutes every 2-3 hours the next few days. If pain is not resolved by early next week you should follow-up with your orthopedic provider. Certainly return to the emergency room for any new or worsening symptoms. - My Orders Last 24 Hours: My Active Orders 09/05/18 12:19 Knee 3V Lt [CR] Stat - Assessment/Plan Last 24 Hours: My Active Orders 09/05/18 12:19 Knee 3V Lt [CR] Stat
[2018-09-05] MEDS ORDERED: Ondansetron 4 MG Tab.DIS PO ONE (12:19)
[2018-09-05] MEDS ORDERED: Ibuprofen 600 MG Tab PO ONE (12:19)
[2018-09-05] MEDS ORDERED: Acetaminophen/HYDROcodone 325-5 MG Tab PO ONE (13:05)
--- NOTE | 2018-09-05 15:36 | CR ---
Left knee: AP, lateral and sunrise patellar views of the left knee were obtained. Comparison: Previous left knee exam of 05/10/14. Left knee prosthesis is seen which is an interval change from previous exam. Components are aligned. Underlying bony structures are intact. No fracture or other bony abnormality is appreciated. Impression: 1. Left knee prosthesis. Nothing acute is seen on three-view left knee exam. Diagnostic code #2
== END 2018-09-05 13:30 | disposition home or self-care (01) ==
LOC: JD.ED 11:39
DX: S89.92XA Unspecified injury of left lower leg, initial encounter (principal); I10 Essential (primary) hypertension; F41.9 Anxiety disorder, unspecified; F32.9 Major depressive disorder, single episode, unspecified; Z79.899 Other long term (current) drug therapy; W01.0XXA Fall on same level from slipping, tripping and stumbling without subsequent striking against object, initial encounter
CPT/HCPCS: 73562; 99283; A9270

== ENCOUNTER 2019-08-27 11:31 | Emergency (ER) | payer BC ==
[2019-08-27 11:41] VITALS: BP 154/107; PULSE 103
[2019-08-27] MEDS ORDERED: Morphine 4 MG/ML Syringe IVPUSH ONE (11:44)
[2019-08-27] MEDS ORDERED: Ondansetron 4 MG/2 ML SDV IVPUSH ONE (11:44)
[2019-08-27] MEDS ORDERED: Sodium Chloride 0.9% 1,000 ML IV ONE (11:44)
--- NOTE | 2019-08-27 11:47 | EDM.PDOC ---
ED HPI GENERAL MEDICAL PROBLEM - General Chief Complaint: Abdominal Pain Stated Complaint: ABDOMINAL PAIN Time Seen by Provider: 08/27/19 11:36 Source of Information: Reports: Patient History Limitations: Reports: No Limitations - History of Present Illness INITIAL COMMENTS - FREE TEXT/NARRATIVE: Patient's unfortunate 53-year-old female presents emergency Department today with complaints of left lower quadrant abdominal pain. Patient reports that symptoms started 3 days ago and progressively worsened since. Patient reports she has history of IBS this pain feels similar to previous episodes of IBS "worse". Patient Ji is unable to work for the past 3 days she presented emergency Department today for evaluation. Positive nausea no vomiting no fever no chills no shortness of breath positive diarrhea no hematemesis no hematochezia and no melena. Patient reports the pain is a crampy- type pain in the left lower quadrant of her abdomen is worse with palpation or eating. Patient reports that she is unable tolerate by mouth at this time Abdominal Pain Score (Numeric/FACES): 10 - Related Data Allergies Allergy/AdvReac Type Severity Reaction Status Date / Time No Known Allergies Allergy Verified 08/27/19 11:38 Home Meds: Home Meds buPROPion [Wellbutrin XL] 150 mg PO DAILY 10/19/16 [History] ClonazePAM [KlonoPIN] 0.25 mg PO BID 06/17/17 [History] Fluticasone Propionate [Flonase] 1 spray WILLIAM DAILY 11/05/17 [History] Loratadine/Pseudoephedrine [Claritin-D 24 Hour Tablet] 1 tab PO DAILY 09/05/18 [ History] Dicyclomine HCl [Bentyl] 10 mg PO QID PRN #20 capsule 08/27/19 [Rx] Ondansetron [Zofran ODT] 4 mg PO TID PRN #8 tab.dis 08/27/19 [Rx] Past Medical History HEENT History: Reports: Cataract Cardiovascular History: Reports: Hypertension Respiratory History: Reports: Other (See Below) Other Respiratory History: seasonal allergies Gastrointestinal History: Reports: Irritable Bowel Syndrome Genitourinary History: Reports: None WINDOWS DESKTOP SUPPORT History: Reports: Endometriosis Musculoskeletal History: Reports: Osteoarthritis Neurological History: Reports: None Psychiatric History: Reports: Anxiety, Depression Endocrine/Metabolic History: Reports: Obesity/BMI 30+ Hematologic History: Reports: None Oncologic (Cancer) History: Reports: None Dermatologic History: Reports: None - Infectious Disease History Infectious Disease History: Reports: None - Past Surgical History HEENT Surgical History: Reports: Cataract Surgery Cardiovascular Surgical History: Reports: None Respiratory Surgical History: Reports: None GI Surgical History: Reports: None Musculoskeletal Surgical History: Reports: Knee Replacement, Shoulder Surgery, Other (See Below) Other Musculoskeletal Surgeries/Procedures:: left knee replacement Social & Family History - Family History Family Medical History: Noncontributory Cardiac: Reports: CAD - Tobacco Use Smoking Status *Q: Never Smoker - Caffeine Use Caffeine Use: Reports: Soda - Recreational Drug Use Recreational Drug Use: No - Living Situation & Occupation Living situation: Reports: , with Family ED ROS GENERAL - Review of Systems Review Of Systems: See Below Constitutional: Denies: Fever, Chills Cardiovascular: Denies: Chest Pain GI/Abdominal: Reports: Abdominal Pain, Diarrhea, Nausea. Denies: Hematemesis, Hematochezia, Vomiting ED EXAM, GI/ABD - Physical Exam Exam: See Below Exam Limited By: No Limitations General Appearance: Alert, WD/WN, Mild Distress Nose: Normal Inspection, Normal Mucosa, No Blood Throat/Mouth: Normal Inspection, Normal Lips, Normal Teeth, Normal Gums, Normal Oropharynx, Normal Voice, No Airway Compromise Head: Atraumatic, Normocephalic Respiratory/Chest: No Respiratory Distress, Lungs Clear, Normal Breath Sounds, No Accessory Muscle Use, Chest Non-Tender Cardiovascular: Normal Peripheral Pulses, Regular Rate, Rhythm, No Edema, No Gallop, No JVD, No Murmur, No Rub GI/Abdominal Exam: Normal Bowel Sounds, No Organomegaly, No Abnormal Bruit, Tender (Moderate left lower quadrant) Extremities: Normal Inspection, Normal Range of Motion, Non-Tender, Normal Capillary Refill, No Pedal Edema Neurological: Alert Skin Exam: Warm, Dry, No Rash Course - Vital Signs Last Recorded V/S: Last Vital Signs Temp 98.9 F 08/27/19 11:36 Pulse 103 H 08/27/19 11:36 Resp 16 08/27/19 11:36 BP 154/107 H 08/27/19 11:36 Pulse Ox 98 08/27/19 11:36 - Orders/Labs/Meds Labs: Laboratory Tests 08/27/19 08/27/19 08/27/19 Range/Units 12:18 12:19 12:19 WBC 7.65 (3.98-10.04) K/mm3 RBC 4.73 (3.98-5.22) M/mm3 Hgb 13.1 (11.2-15.7) gm/dl Hct 39.2 (34.1-44.9) % MCV 82.9 (79.4-94.8) fl MCH 27.7 (25.6-32.2) pg MCHC 33.4 (32.2-35.5) g/dl RDW Std Deviation 42.3 (36.4-46.3) fL Plt Count 283 D (182-369) K/mm3 MPV 10.0 (9.4-12.3) fl Neut % (Auto) 62.9 (34.0-71.1) % Lymph % (Auto) 26.9 (19.3-51.7) % [place] % (Auto) 7.2 (4.7-12.5) % Eos % (Auto) 2.5 (0.7-5.8) Baso % (Auto) 0.4 (0.1-1.2) % Neut # (Auto) 4.81 (1.56-6.13) K/mm3 Lymph # (Auto) 2.06 (1.18-3.74) K/mm3 [place] # (Auto) 0.55 H (0.24-0.36) K/mm3 Eos # (Auto) 0.19 (0.04-0.36) K/mm3 Baso # (Auto) 0.03 (0.01-0.08) K/mm3 Sodium 138 (136-145) mEq/L Potassium 3.8 (3.5-5.1) mEq/L Chloride 104 (98-107) mEq/L Carbon Dioxide 24 (21-32) mEq/L Anion Gap 13.8 (5-15) BUN 14 (7-18) mg/dL Creatinine 0.9 (0.55-1.02) mg/dL Est Cr Clr Drug Dosing TNP Estimated GFR (MDRD) > 60 (>60) mL/min BUN/Creatinine Ratio 15.6 (14-18) Glucose 92 (74-106) mg/dL Calcium 8.8 (8.5-10.1) mg/dL Total Bilirubin 0.2 (0.2-1.0) mg/dL AST 28 (15-37) U/L ALT 59 (14-59) U/L Alkaline Phosphatase 101 (46-116) U/L Total Protein 7.4 (6.4-8.2) g/dl Albumin 3.8 (3.4-5.0) g/dl Globulin 3.6 gm/dL Albumin/Globulin Ratio 1.1 (1-2) HCG, Qual Negative (NEGATIVE) Urine Color (Yellow) Urine Appearance (Clear) Urine pH (5.0-8.0) Ur Specific [place] (1.005-1.030) Urine Protein (Negative) Urine Glucose (UA) (Negative) Urine Ketones (Negative) Urine Occult Blood (Negative) Urine Nitrite (Negative) Urine Bilirubin (Negative) Urine Urobilinogen (0.2-1.0) Ur Leukocyte Esterase (Negative) Urine RBC (0-5) /hpf Urine WBC (0-5) /hpf Ur Squamous Epith Cells (0-5) /hpf Urine Bacteria (FEW) /hpf Urine Mucus (FEW) /hpf 08/27/19 Range/Units 13:26 WBC (3.98-10.04) K/mm3 RBC (3.98-5.22) M/mm3 Hgb (11.2-15.7) gm/dl Hct (34.1-44.9) % MCV (79.4-94.8) fl MCH (25.6-32.2) pg MCHC (32.2-35.5) g/dl RDW Std Deviation (36.4-46.3) fL Plt Count (182-369) K/mm3 MPV (9.4-12.3) fl Neut % (Auto) (34.0-71.1) % Lymph % (Auto) (19.3-51.7) % [place] % (Auto) (4.7-12.5) % Eos % (Auto) (0.7-5.8) Baso % (Auto) (0.1-1.2) % Neut # (Auto) (1.56-6.13) K/mm3 Lymph # (Auto) (1.18-3.74) K/mm3 [place] # (Auto) (0.24-0.36) K/mm3 Eos # (Auto) (0.04-0.36) K/mm3 Baso # (Auto) (0.01-0.08) K/mm3 Sodium (136-145) mEq/L Potassium (3.5-5.1) mEq/L Chloride (98-107) mEq/L Carbon Dioxide (21-32) mEq/L Anion Gap (5-15) BUN (7-18) mg/dL Creatinine (0.55-1.02) mg/dL Est Cr Clr Drug Dosing Estimated GFR (MDRD) (>60) mL/min BUN/Creatinine Ratio (14-18) Glucose (74-106) mg/dL Calcium (8.5-10.1) mg/dL Total Bilirubin (0.2-1.0) mg/dL AST (15-37) U/L ALT (14-59) U/L Alkaline Phosphatase (46-116) U/L Total Protein (6.4-8.2) g/dl Albumin (3.4-5.0) g/dl Globulin gm/dL Albumin/Globulin Ratio (1-2) HCG, Qual (NEGATIVE) Urine Color Yellow (Yellow) Urine Appearance Clear (Clear) Urine pH 6.5 (5.0-8.0) Ur Specific [place] 1.020 (1.005-1.030) Urine Protein Negative (Negative) Urine Glucose (UA) Negative (Negative) Urine Ketones Negative (Negative) Urine Occult Blood Trace-lysed H (Negative) Urine Nitrite Negative (Negative) Urine Bilirubin Negative (Negative) Urine Urobilinogen 0.2 (0.2-1.0) Ur Leukocyte Esterase Negative (Negative) Urine RBC 5-10 H (0-5) /hpf Urine WBC 0-5 (0-5) /hpf Ur Squamous Epith Cells 0-5 (0-5) /hpf Urine Bacteria Few (FEW) /hpf Urine Mucus Few (FEW) /hpf Meds: Medications Discontinued Medications Generic Name Dose Route Start Last Admin Trade Name Freq PRN Reason Stop Dose Admin Diatrizoate Meglum/Diatrizoate Sod 90 ml 08/27/19 12:26 Gastrografin 37% PO 08/27/19 12:27 ONETIME ONE Sodium Chloride 1,000 mls @ 1,000 mls/hr 08/27/19 11:44 08/27/19 11:53 Normal Saline IV 08/27/19 12:43 1,000 mls/hr ONETIME ONE Administration Iopamidol 100 ml 08/27/19 12:26 Isovue-300 (61%) IVPUSH 08/27/19 12:27 ONETIME ONE Morphine Sulfate 4 mg 08/27/19 11:44 08/27/19 11:52 Morphine IVPUSH 08/27/19 11:45 4 mg ONETIME ONE Administration Ondansetron HCl 4 mg 08/27/19 11:44 08/27/19 11:52 Zofran IVPUSH 08/27/19 11:45 4 mg ONETIME ONE Administration Sodium Chloride 10 ml 08/27/19 12:26 Saline Flush FLUSH 08/27/19 12:27 ONETIME ONE - Re-Assessments/Exams Free Text/Narrative Re-Assessment/Exam: 08/27/19 13:46 CT abdomen and pelvis "impression: #1 multiple findings as noted above. Nothing acute is appreciated." Departure - Departure Time of Disposition: 14:07 Disposition: Home, Self-Care 01 Clinical Impression: Abdominal pain, Diarrhea - Discharge Information Prescriptions: Dicyclomine HCl [Bentyl] 10 mg PO QID PRN #20 capsule PRN Reason: Abdominal Pain Ondansetron [Zofran ODT] 4 mg PO TID PRN #8 tab.dis PRN Reason: Nausea Referrals: Amanda Greco MD [Primary Care Provider] - Forms: ED Department Discharge Additional Instructions: Home, rest, adequate fluids, return as needed for worsening condition Sepsis Event Note - Evaluation Sepsis Screening Result: No Definite Risk - Focused Exam Vital Signs: Vital Signs Temp Pulse Resp BP Pulse Ox 08/27/19 11:36 98.9 F 103 H 16 154/107 H 98 Date Exam was Performed: 08/27/19 Time Exam was Performed: 14:07
[2019-08-27] MEDS ORDERED: Diatrizoate Meglumine/Diatrizoate Sodium 37% 120 ML Bottle PO ONE (12:26)
[2019-08-27] MEDS ORDERED: Sodium Chloride 0.9% 10 ML Syringe FLUSH ONE (12:26)
[2019-08-27] MEDS ORDERED: Iopamidol 612 MG/ML 100 ML Bottle IVPUSH ONE (12:26)
--- NOTE | 2019-08-27 13:39 | CT ---
CT abdomen and pelvis Technique: Multiple axial sections were obtained from above the dome of the diaphragm inferiorly through the pubic symphysis. Intravenous and oral contrast was utilized. Delayed images were also obtained through the bladder. Comparison: No prior CT abdomen or pelvis exam, previous abdominal x-ray of 01/17/17 and abdominal ultrasound of the right upper quadrant dated 03/03/19. Findings: Visualized lung bases show nothing acute. Small subpleural nodule is seen within the left lung base measuring 3 mm. This is incidental. Liver shows mild fatty infiltration. No focal abnormality is appreciated within the liver. Contrast noted within the distal esophagus compatible with reflux. Adrenal glands show no nodule. Pancreas is within normal limits. Spleen appears within normal limits. Kidneys show symmetric contrast enhancement without hydronephrosis or mass. Aorta shows atherosclerotic change without aneurysm. No retroperitoneal adenopathy or mesenteric abnormalities are seen. No pelvic mass or adenopathy is seen. No free fluid or inflammatory change is seen. Appendix not visualized. Bone window settings were reviewed which show mild degenerative change scattered within the spine. Fat-containing periumbilical hernia is noted. Impression: 1. Multiple findings as noted above. Nothing acute is appreciated. Diagnostic code #2 Study was dictated in [place] Standard Time
== END 2019-08-27 14:21 | disposition home or self-care (01) ==
LOC: JD.ED 11:31
DX: R10.32 Left lower quadrant pain (principal); R19.7 Diarrhea, unspecified; I10 Essential (primary) hypertension; F41.9 Anxiety disorder, unspecified; F32.9 Major depressive disorder, single episode, unspecified; M19.90 Unspecified osteoarthritis, unspecified site; E66.9 Obesity, unspecified; Z79.899 Other long term (current) drug therapy
CPT/HCPCS: 36415; 74177; 80053; 81001; 84703; 85025; 96361; 96374; 96375; 99284; J2270; J2405; J7030; Q9963

== ENCOUNTER 2019-08-29 09:47 | Emergency (ER) | payer BC ==
[2019-08-29] MEDS ORDERED: FLU Vacc QS2019-20(6MOS+)/PF 60 MCG/0.5 ML SYRINGE IM ONE (10:15)
[2019-08-29] MEDS ORDERED: Sodium Chloride 0.9% 10 ML Syringe FLUSH PRN (10:27)
[2019-08-29] MEDS ORDERED: Ondansetron 4 MG/2 ML SDV IVPUSH ONE (10:27)
[2019-08-29] MEDS ORDERED: Sodium Chloride 0.9% 1,000 ML IV STA (10:27)
[2019-08-29] MEDS ORDERED: HYDROmorphone 1 MG/ML Syringe IVPUSH ONE (10:28)
--- NOTE | 2019-08-29 11:11 | EDM.PDOC ---
ED HPI GENERAL MEDICAL PROBLEM - General Chief Complaint: Gastrointestinal Problem Stated Complaint: NAUSEA,CRAMPING,DIARRHEA Time Seen by Provider: 08/29/19 10:01 Source of Information: Reports: Patient History Limitations: Reports: No Limitations - History of Present Illness INITIAL COMMENTS - FREE TEXT/NARRATIVE: The patient presents with abdominal pain, nausea, vomiting and diarrhea. This all started earlier in the week and it was thought to be her IBS. This did get worse and she was seen here on Friday and labs and a CT of her abdomen and pelvis was done. The labs and CT did look good. She did good yesterday but today she has more pain, nausea and vomiting. She does not have a gallbladder but she does have an appendix. She has not been around anyone one who is sick and she did not eat any bad food. She has not been on antibiotic recently. Onset: Gradual Duration: Week(s): Location: Reports: Abdomen Quality: Reports: Sharp Severity: Moderate Improves with: Reports: None Worsens with: Reports: None Associated Symptoms: Reports: Nausea/Vomiting. Denies: Chest Pain, Cough, Fever /Chills, Headaches, Shortness of Breath Abdomen Pain Score (Numeric/FACES): 4 - Related Data Allergies Allergy/AdvReac Type Severity Reaction Status Date / Time No Known Allergies Allergy Verified 08/29/19 10:00 Home Meds: Home Meds buPROPion [Wellbutrin XL] 150 mg PO DAILY 10/19/16 [History] ClonazePAM [KlonoPIN] 0.25 mg PO BID 06/17/17 [History] Fluticasone Propionate [Flonase] 1 spray WILLIAM DAILY 11/05/17 [History] Loratadine/Pseudoephedrine [Claritin-D 24 Hour Tablet] 1 tab PO DAILY 09/05/18 [ History] Dicyclomine HCl [Bentyl] 10 mg PO QID PRN #20 capsule 08/27/19 [Rx] Ondansetron [Zofran ODT] 4 mg PO TID PRN #8 tab.dis 08/27/19 [Rx] Escitalopram [Lexapro] 10 mg PO DAILY 08/29/19 [History] Hydrocodone/Acetaminophen [Hydrocodon-Acetaminophen 5-325] 1 - 2 each PO Q6HR PRN #15 tablet 08/29/19 [Rx] Loperamide [Imodium] 2 mg PO ASDIRECTED PRN 08/29/19 [History] Losartan [Cozaar] 25 mg PO DAILY 08/29/19 [History] Nortriptyline HCl [Pamelor] 50 mg PO BEDTIME 08/29/19 [History] atorvaSTATin [Lipitor] 40 mg PO DAILY 08/29/19 [History] Past Medical History HEENT History: Reports: Cataract Cardiovascular History: Reports: Hypertension Respiratory History: Reports: Other (See Below) Other Respiratory History: seasonal allergies Gastrointestinal History: Reports: Irritable Bowel Syndrome Genitourinary History: Reports: None 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 Musculoskeletal History: Reports: Osteoarthritis Neurological History: Reports: None Psychiatric History: Reports: Anxiety, Depression Endocrine/Metabolic History: Reports: Obesity/BMI 30+ Hematologic History: Reports: None Oncologic (Cancer) History: Reports: None Dermatologic History: Reports: None - Infectious Disease History Infectious Disease History: Reports: None - Past Surgical History HEENT Surgical History: Reports: Cataract Surgery Cardiovascular Surgical History: Reports: None Respiratory Surgical History: Reports: None GI Surgical History: Reports: None Musculoskeletal Surgical History: Reports: Knee Replacement, Shoulder Surgery, Other (See Below) Other Musculoskeletal Surgeries/Procedures:: left knee replacement Social & Family History - Family History Family Medical History: Noncontributory Cardiac: Reports: CAD - Tobacco Use Smoking Status *Q: Never Smoker - Caffeine Use Caffeine Use: Reports: Soda - Recreational Drug Use Recreational Drug Use: No - Living Situation & Occupation Living situation: Reports: , with Family ED ROS GENERAL - Review of Systems Review Of Systems: See Below Constitutional: Reports: No Symptoms HEENT: Reports: No Symptoms Respiratory: Reports: No Symptoms Cardiovascular: Reports: No Symptoms Endocrine: Reports: No Symptoms GI/Abdominal: Reports: Abdominal Pain, Diarrhea, Nausea, Vomiting : Reports: No Symptoms Musculoskeletal: Reports: No Symptoms ED EXAM, GI/ABD - Physical Exam Exam: See Below Exam Limited By: No Limitations General Appearance: Alert, No Apparent Distress Ears: Normal External Exam Nose: Normal Inspection Head: Atraumatic, Normocephalic Neck: Normal Inspection Respiratory/Chest: No Respiratory Distress, Lungs Clear, Normal Breath Sounds Cardiovascular: Regular Rate, Rhythm, No Edema, No Murmur GI/Abdominal Exam: Soft, No Organomegaly, No Mass, Tender (Moderate tenderness to the left abdomen) Course - Vital Signs Last Recorded V/S: Last Vital Signs Temp 98.6 F 08/29/19 09:58 Pulse 95 08/29/19 09:58 Resp 18 08/29/19 09:58 BP 142/90 H 08/29/19 09:58 Pulse Ox 93 L 08/29/19 09:58 - Orders/Labs/Meds Orders: Active Orders 24 hr Category Date Time Status Influenza Vaccine Charge [] .DISCHARGE Care 08/29/19 10:02 Active Peripheral IV Care [] . DIRECTED Care 08/29/19 10:27 Active Sodium Chloride 0.9% [Saline Flush] Med 08/29/19 10:27 Active 10 ml FLUSH ASDIRECTED PRN ED Antiemetic Medication Reflex [OM.PC] Stat Oth 08/29/19 10:27 Ordered Peripheral IV Insertion Adult [OM.PC] Stat Ot 08/29/19 10:27 Ordered Medication Orders Sodium Chloride (Saline Flush) 10 ml FLUSH ASDIRECTED PRN PRN Reason: Keep Vein Open Last Admin: 08/29/19 11:00 Dose: 10 ml Labs: Laboratory Tests 08/29/19 08/29/19 08/29/19 Range/Units 10:55 10:55 12:25 WBC 6.33 (3.98-10.04) K/mm3 RBC 4.47 (3.98-5.22) M/mm3 Hgb 12.4 (11.2-15.7) gm/dl Hct 37.1 (34.1-44.9) % MCV 83.0 (79.4-94.8) fl MCH 27.7 (25.6-32.2) pg MCHC 33.4 (32.2-35.5) g/dl RDW Std Deviation 41.7 (36.4-46.3) fL Plt Count 305 (182-369) K/mm3 MPV 9.7 (9.4-12.3) fl Neut % (Auto) 57.6 (34.0-71.1) % Lymph % (Auto) 29.2 (19.3-51.7) % [place] % (Auto) 8.1 (4.7-12.5) % Eos % (Auto) 4.1 (0.7-5.8) Baso % (Auto) 0.8 (0.1-1.2) % Neut # (Auto) 3.65 (1.56-6.13) K/mm3 Lymph # (Auto) 1.85 (1.18-3.74) K/mm3 [place] # (Auto) 0.51 H (0.24-0.36) K/mm3 Eos # (Auto) 0.26 (0.04-0.36) K/mm3 Baso # (Auto) 0.05 (0.01-0.08) K/mm3 Sodium 142 (136-145) mEq/L Potassium 4.3 (3.5-5.1) mEq/L Chloride 106 (98-107) mEq/L Carbon Dioxide 25 (21-32) mEq/L Anion Gap 15.3 H (5-15) BUN 10 (7-18) mg/dL Creatinine 0.9 (0.55-1.02) mg/dL Est Cr Clr Drug Dosing 64.30 mL/min Estimated GFR (MDRD) > 60 (>60) mL/min BUN/Creatinine Ratio 11.1 L (14-18) Glucose 83 (74-106) mg/dL Calcium 8.9 (8.5-10.1) mg/dL Total Bilirubin 0.2 (0.2-1.0) mg/dL AST 21 (15-37) U/L ALT 52 (14-59) U/L Alkaline Phosphatase 97 (46-116) U/L Total Protein 7.0 (6.4-8.2) g/dl Albumin 3.7 (3.4-5.0) g/dl Globulin 3.3 gm/dL Albumin/Globulin Ratio 1.1 (1-2) Lipase 69 L (73-393) U/L Urine Color Light yellow (Yellow) Urine Appearance Clear (Clear) Urine pH 6.5 (5.0-8.0) Ur Specific [place] 1.020 (1.005-1.030) Urine Protein Negative (Negative) Urine Glucose (UA) Negative (Negative) Urine Ketones Negative (Negative) Urine Occult Blood Trace-lysed H (Negative) Urine Nitrite Negative (Negative) Urine Bilirubin Negative (Negative) Urine Urobilinogen 0.2 (0.2-1.0) Ur Leukocyte Esterase Negative (Negative) Urine RBC 0-5 (0-5) /hpf Urine WBC 0-5 (0-5) /hpf Ur Epithelial Cells 0-5 (0-5) /hpf Urine Bacteria Rare (FEW) /hpf Urine Mucus Few (FEW) /hpf Meds: Medications Generic Name Dose Route Start Last Admin Trade Name Adwoa PRN Reason Stop Dose Admin Sodium Chloride 10 ml 08/29/19 10:27 08/29/19 11:00 Saline Flush FLUSH 10 ml ASDIRECTED PRN Administration Keep Vein Open Discontinued Medications Generic Name Dose Route Start Last Admin Trade Name Adwoa PRN Reason Stop Dose Admin Hydromorphone HCl 1 mg 08/29/19 10:28 08/29/19 10:59 Dilaudid IVPUSH 08/29/19 10:29 1 mg ONETIME ONE Administration Sodium Chloride 1,000 mls @ 1,000 mls/hr 08/29/19 10:27 08/29/19 10:57 Normal Saline IV 08/29/19 11:26 1,000 mls/hr .BOLUS STA Administration Sodium Chloride 1,000 mls @ 1,000 mls/hr 08/29/19 12:03 08/29/19 12:23 Normal Saline IV 08/29/19 13:02 1,000 mls/hr ONETIME ONE Administration Influenza Virus Vaccine 1 each 08/29/19 10:01 Pharmacy To Dose - Influenza Vaccine IM 08/29/19 10:02 ONETIME ONE Influenza Virus Vaccine 60 mcg 08/29/19 10:15 Fluzone Quad [id number] Syringe IM 08/29/19 10:16 .ONCE ONE Ondansetron HCl 4 mg 08/29/19 10:27 08/29/19 10:58 Zofran IVPUSH 08/29/19 10:28 4 mg ONETIME ONE Administration - Re-Assessments/Exams Free Text/Narrative Re-Assessment/Exam: 08/29/19 11:10 I ordered an IV NS 1L bolus, zofran 4mg IV, dilaudid 1mg IV, labs and UA. 08/29/19 12:10 Her CBC looks good. Her anion gap was just a little elevated at 15.3. She feels better and would like some ice chips. I have ordered another liter of fluid. 08/29/19 13:15 Her UA looks good. She feels much better. I will give her a little something for pain at home and some phenergan. Departure - Departure Time of Disposition: 13:20 Disposition: Home, Self-Care 01 Condition: Good Clinical Impression: Abdominal pain, Diarrhea, Nausea - Discharge Information *PRESCRIPTION DRUG MONITORING PROGRAM REVIEWED*: No *COPY OF PRESCRIPTION DRUG MONITORING REPORT IN PATIENT ANNEMARIE: No Prescriptions: Hydrocodone/Acetaminophen [Hydrocodon-Acetaminophen 5-325] 1 - 2 each PO Q6HR PRN #15 tablet PRN Reason: Pain Referrals: Amanda Greco MD [Primary Care Provider] - 1 Week Forms: ED Department Discharge Additional Instructions: Drink plenty of fluids and get some rest today. Take the hydrocodone as needed for pain. Take the zofran as needed for nausea and vomiting. Use the phenergan as needed. Pleas return if you are worse. Sepsis Event Note - Evaluation Sepsis Screening Result: No Definite Risk - Focused Exam Vital Signs: Vital Signs Temp Pulse Resp BP Pulse Ox 08/29/19 09:58 98.6 F 95 18 142/90 H 93 L Date Exam was Performed: 08/29/19 Time Exam was Performed: 13:15 - My Orders Last 24 Hours: My Active Orders 08/29/19 10:02 Influenza Vaccine Charge [RC] .DISCHARGE 08/29/19 10:27 Peripheral IV Care [RC] . DIRECTED Sodium Chloride 0.9% [Saline Flush] 10 ml FLUSH ASDIRECTED PRN ED Antiemetic Medication Reflex [OM.PC] Stat Peripheral IV Insertion Adult [OM.PC] Stat - Assessment/Plan Last 24 Hours: My Active Orders 08/29/19 10:02 Influenza Vaccine Charge [RC] .DISCHARGE 08/29/19 10:27 Peripheral IV Care [RC] . DIRECTED Sodium Chloride 0.9% [Saline Flush] 10 ml FLUSH ASDIRECTED PRN ED Antiemetic Medication Reflex [OM.PC] Stat Peripheral IV Insertion Adult [OM.PC] Stat
[2019-08-29] MEDS ORDERED: Sodium Chloride 0.9% 1,000 ML IV ONE (12:03)
[2019-08-29 13:50] VITALS: BP 106/84; PULSE 99
== END 2019-08-29 13:41 | disposition home or self-care (01) ==
LOC: JD.ED 09:47
DX: R10.9 Unspecified abdominal pain (principal); R11.2 Nausea with vomiting, unspecified; R19.7 Diarrhea, unspecified; I10 Essential (primary) hypertension; F32.9 Major depressive disorder, single episode, unspecified; F41.9 Anxiety disorder, unspecified; E66.9 Obesity, unspecified; Z68.34 Body mass index [BMI] 34.0-34.9, adult; Z23 Encounter for immunization; Z79.899 Other long term (current) drug therapy
CPT/HCPCS: 36415; 80053; 81001; 83690; 85025; 90471; 90686; 96361; 96374; 96375; 99284; J1170; J2405; J7030; 99283; G0008

== ENCOUNTER 2020-08-27 10:04 | Emergency (ER) | payer BC ==
[2020-08-27 10:33] VITALS: BP 146/87; PULSE 102
[2020-08-27] MEDS ORDERED: Sodium Chloride 0.9% 1,000 ML IV ONE (10:51)
[2020-08-27] MEDS ORDERED: Ondansetron 4 MG/2 ML SDV IVPUSH ONE (10:51)
[2020-08-27] MEDS ORDERED: HYDROmorphone 0.5 MG/0.5 ML Syringe IVPUSH ONE (11:21)
[2020-08-27] MEDS ORDERED: Sodium Chloride 0.9% 10 ML Syringe FLUSH PRN (12:48)
[2020-08-27] MEDS ORDERED: Diatrizoate Meglumine/Diatrizoate Sodium 37% 120 ML Bottle PO ONE (12:48)
[2020-08-27] MEDS ORDERED: Iopamidol 612 MG/ML 100 ML Bottle IVPUSH ONE (12:48)
--- NOTE | 2020-08-27 12:54 | EDM.PDOC ---
ED HPI GENERAL MEDICAL PROBLEM - General Chief Complaint: Gastrointestinal Problem Stated Complaint: DIARRHEA,CRAMPING,NAUSEA,LIGHT HEADED Time Seen by Provider: 08/27/20 10:58 Source of Information: Reports: Patient, RN Notes Reviewed History Limitations: Reports: No Limitations - History of Present Illness INITIAL COMMENTS - FREE TEXT/NARRATIVE: Patient is a 54-year-old female presenting to the emergency department with complaints of nausea, vomiting, headache, intermittent abdominal pain, and diarrhea. She states that she has a history of IBS and has had similar episodes to this in the past. Symptoms began this Friday and have been quite consistent since that time. Patient states that the abdominal pain is crampy in nature and usually occurs either when she is going to have a bowel movement or when she is going to vomit. She is had no known fever. She has been used in her previously prescribed medications including Zofran, dicyclomine, loperamide, and Levsin, however symptoms are not resolving. She does have a history significant for previous appendectomy and cholecystectomy. States has been quite a while since she had a colonoscopy. She denies any hematemesis or hematochezia. Abdominal Pain Score (Numeric/FACES): 2 - Related Data Allergies Allergy/AdvReac Type Severity Reaction Status Date / Time No Known Allergies Allergy Verified 08/27/20 10:34 Home Meds: Home Meds buPROPion [Wellbutrin XL] 150 mg PO DAILY 10/19/16 [History] ClonazePAM [KlonoPIN] 0.25 mg PO BID 06/17/17 [History] Fluticasone Propionate [Flonase] 1 spray WILLIAM DAILY 11/05/17 [History] Loratadine/Pseudoephedrine [Claritin-D 24 Hour Tablet] 1 tab PO DAILY 09/05/18 [History] Dicyclomine HCl [Bentyl] 10 mg PO QID PRN #20 capsule 08/27/19 [Rx] Ondansetron [Zofran ODT] 4 mg PO TID PRN #8 tab.dis 08/27/19 [Rx] Escitalopram [Lexapro] 10 mg PO DAILY 08/29/19 [History] Hydrocodone/Acetaminophen [Hydrocodone-Acetamin 5-325 mg] 1 - 2 each PO Q6HR PRN #15 tablet 08/29/19 [Rx] Loperamide [Imodium] 2 mg PO ASDIRECTED PRN 08/29/19 [History] Losartan [Cozaar] 25 mg PO DAILY 08/29/19 [History] Nortriptyline HCl [Pamelor] 50 mg PO BEDTIME 08/29/19 [History] atorvaSTATin [Lipitor] 40 mg PO DAILY 08/29/19 [History] Promethazine [Phenergan] 25 mg PO Q6H PRN #12 tab 08/27/20 [Rx] Past Medical History HEENT History: Reports: Cataract Cardiovascular History: Reports: Hypertension Respiratory History: Reports: Other (See Below) Other Respiratory History: seasonal allergies Gastrointestinal History: Reports: Irritable Bowel Syndrome Genitourinary History: Reports: None [employer] History: Reports: Endometriosis Musculoskeletal History: Reports: Osteoarthritis Neurological History: Reports: None Psychiatric History: Reports: Anxiety, Depression Endocrine/Metabolic History: Reports: Obesity/BMI 30+ Hematologic History: Reports: None Oncologic (Cancer) History: Reports: None Dermatologic History: Reports: None - Infectious Disease History Infectious Disease History: Reports: Novel Coronavirus - Past Surgical History HEENT Surgical History: Reports: Cataract Surgery Other HEENT Surgeries/Procedures: cataract surgery last summer Cardiovascular Surgical History: Reports: None Respiratory Surgical History: Reports: None GI Surgical History: Reports: None Musculoskeletal Surgical History: Reports: Knee Replacement, Shoulder Surgery, Other (See Below) Other Musculoskeletal Surgeries/Procedures:: left knee replacement Social & Family History - Family History Family Medical History: No Pertinent Family History Cardiac: Reports: CAD - Tobacco Use Tobacco Use Status *Q: Never Tobacco User - Caffeine Use Caffeine Use: Reports: Soda - Living Situation & Occupation Living situation: Reports: , with Family ED ROS GENERAL - Review of Systems Review Of Systems: See Below Constitutional: Reports: Decreased Appetite. Denies: Fever, Chills HEENT: Reports: No Symptoms Respiratory: Reports: No Symptoms Cardiovascular: Reports: No Symptoms Endocrine: Reports: No Symptoms GI/Abdominal: Reports: Abdominal Pain, Diarrhea, Nausea, Vomiting : Reports: No Symptoms Musculoskeletal: Reports: No Symptoms Skin: Reports: No Symptoms Neurological: Reports: Headache. Denies: Confusion, Dizziness Psychiatric: Reports: No Symptoms Hematologic/Lymphatic: Reports: No Symptoms Immunologic: Reports: No Symptoms ED EXAM, GI/ABD - Physical Exam Exam: See Below General Appearance: Alert, WD/WN, No Apparent Distress Respiratory/Chest: No Respiratory Distress, Lungs Clear, Normal Breath Sounds, No Accessory Muscle Use, Chest Non-Tender Cardiovascular: Normal Peripheral Pulses, Regular Rate, Rhythm, No Edema, No Gallop, No JVD, No Murmur, No Rub GI/Abdominal Exam: Normal Bowel Sounds, Soft, Non-Tender, No Organomegaly, No Distention, No Abnormal Bruit, No Mass, Pelvis Stable Neurological: Alert, Oriented, CN II-XII Intact, Normal Cognition, Normal Gait, Normal Reflexes, No Motor/Sensory Deficits Psychiatric: Normal Affect, Normal Mood Skin Exam: Warm, Dry, Intact, Normal Color, No Rash Course - Vital Signs Last Recorded V/S: Last Vital Signs Temp 98.4 F 08/27/20 10:31 Pulse 102 H 08/27/20 10:31 Resp 16 08/27/20 10:31 BP 146/87 H 08/27/20 10:31 Pulse Ox 97 08/27/20 10:31 Orthostatic Blood Pressure [ 116/84 Standing] Orthostatic Blood Pressure [ 149/93 Supine] - Orders/Labs/Meds Orders: Active Orders 24 hr Category Date Time Status Orthostatic Vital Signs [RC] ASDIRECTED Care 08/27/20 10:52 Active Abdomen Pelvis w Cont [CT] Stat Exams 08/27/20 11:25 Ordered Sodium Chloride 0.9% [Saline Flush] Med 08/27/20 12:48 Active 10 ml FLUSH ONETIME PRN Medication Orders Sodium Chloride (Saline Flush) 10 ml FLUSH ONETIME PRN PRN Reason: IV FLUSH Last Admin: 08/27/20 12:58 Dose: 10 ml Documented by: SVETA Labs: Laboratory Tests 08/27/20 08/27/20 08/27/20 Range/Units 10:55 10:55 10:55 WBC 6.81 (3.98-10.04) K/mm3 RBC 5.11 (3.98-5.22) M/mm3 Hgb 14.3 D (11.2-15.7) gm/dl Hct 43.6 (34.1-44.9) % MCV 85.3 (79.4-94.8) fl MCH 28.0 (25.6-32.2) pg MCHC 32.8 (32.2-35.5) g/dl RDW Std Deviation 42.5 (36.4-46.3) fL Plt Count 340 (182-369) K/mm3 MPV 9.6 (9.4-12.3) fl Neut % (Auto) 59.8 (34.0-71.1) % Lymph % (Auto) 30.1 (19.3-51.7) % Stanley % (Auto) 7.0 (4.7-12.5) % Eos % (Auto) 2.1 (0.7-5.8) Baso % (Auto) 0.6 (0.1-1.2) % Neut # (Auto) 4.07 (1.56-6.13) K/mm3 Lymph # (Auto) 2.05 (1.18-3.74) K/mm3 Stanley # (Auto) 0.48 H (0.24-0.36) K/mm3 Eos # (Auto) 0.14 (0.04-0.36) K/mm3 Baso # (Auto) 0.04 (0.01-0.08) K/mm3 Sodium 139 (136-145) mEq/L Potassium 4.4 (3.5-5.1) mEq/L Chloride 102 (98-107) mEq/L Carbon Dioxide 27 (21-32) mEq/L Anion Gap 14.4 (5-15) BUN 13 (7-18) mg/dL Creatinine 1.2 H (0.55-1.02) mg/dL Est Cr Clr Drug Dosing 47.66 mL/min Estimated GFR (MDRD) 47 (>60) mL/min BUN/Creatinine Ratio 10.8 L (14-18) Glucose 94 (74-106) mg/dL Calcium 9.6 (8.5-10.1) mg/dL Magnesium 2.1 (1.8-2.4) mg/dl Total Bilirubin 0.3 (0.2-1.0) mg/dL AST 23 (15-37) U/L ALT 48 (14-59) U/L Alkaline Phosphatase 102 (46-116) U/L C-Reactive Protein 0.6 (<1.0) mg/dL Total Protein 8.0 (6.4-8.2) g/dl Albumin 3.9 (3.4-5.0) g/dl Globulin 4.1 gm/dL Albumin/Globulin Ratio 1.0 (1-2) Lipase 46 L (73-393) U/L Urine Color (Yellow) Urine Appearance (Clear) Urine pH (5.0-8.0) Ur Specific [place] (1.005-1.030) Urine Protein (Negative) Urine Glucose (UA) (Negative) Urine Ketones (Negative) Urine Occult Blood (Negative) Urine Nitrite (Negative) Urine Bilirubin (Negative) Urine Urobilinogen (0.2-1.0) Ur Leukocyte Esterase (Negative) Urine RBC (0-5) /hpf Urine WBC (0-5) /hpf Ur Epithelial Cells (0-5) /hpf Urine Bacteria (FEW) /hpf Urine Mucus (FEW) /hpf 08/27/20 Range/Units 11:50 WBC (3.98-10.04) K/mm3 RBC (3.98-5.22) M/mm3 Hgb (11.2-15.7) gm/dl Hct (34.1-44.9) % MCV (79.4-94.8) fl MCH (25.6-32.2) pg MCHC (32.2-35.5) g/dl RDW Std Deviation (36.4-46.3) fL Plt Count (182-369) K/mm3 MPV (9.4-12.3) fl Neut % (Auto) (34.0-71.1) % Lymph % (Auto) (19.3-51.7) % Stanley % (Auto) (4.7-12.5) % Eos % (Auto) (0.7-5.8) Baso % (Auto) (0.1-1.2) % Neut # (Auto) (1.56-6.13) K/mm3 Lymph # (Auto) (1.18-3.74) K/mm3 Stanley # (Auto) (0.24-0.36) K/mm3 Eos # (Auto) (0.04-0.36) K/mm3 Baso # (Auto) (0.01-0.08) K/mm3 Sodium (136-145) mEq/L Potassium (3.5-5.1) mEq/L Chloride (98-107) mEq/L Carbon Dioxide (21-32) mEq/L Anion Gap (5-15) BUN (7-18) mg/dL Creatinine (0.55-1.02) mg/dL Est Cr Clr Drug Dosing mL/min Estimated GFR (MDRD) (>60) mL/min BUN/Creatinine Ratio (14-18) Glucose (74-106) mg/dL Calcium (8.5-10.1) mg/dL Magnesium (1.8-2.4) mg/dl Total Bilirubin (0.2-1.0) mg/dL AST (15-37) U/L ALT (14-59) U/L Alkaline Phosphatase (46-116) U/L C-Reactive Protein (<1.0) mg/dL Total Protein (6.4-8.2) g/dl Albumin (3.4-5.0) g/dl Globulin gm/dL Albumin/Globulin Ratio (1-2) Lipase (73-393) U/L Urine Color Yellow (Yellow) Urine Appearance Clear (Clear) Urine pH 7.0 (5.0-8.0) Ur Specific [place] 1.010 (1.005-1.030) Urine Protein Negative (Negative) Urine Glucose (UA) Negative (Negative) Urine Ketones Negative (Negative) Urine Occult Blood Trace-intact H (Negative) Urine Nitrite Negative (Negative) Urine Bilirubin Negative (Negative) Urine Urobilinogen 0.2 (0.2-1.0) Ur Leukocyte Esterase Trace H (Negative) Urine RBC 0-5 (0-5) /hpf Urine WBC 0-5 (0-5) /hpf Ur Epithelial Cells 0-5 (0-5) /hpf Urine Bacteria Few (FEW) /hpf Urine Mucus Few (FEW) /hpf Meds: Medications Generic Name Dose Route Start Last Admin Trade Name Freq PRN Reason Stop Dose Admin Sodium Chloride 10 ml 08/27/20 12:48 08/27/20 12:58 Saline Flush FLUSH 10 ml ONETIME PRN Administration IV FLUSH Discontinued Medications Generic Name Dose Route Start Last Admin Trade Name Freq PRN Reason Stop Dose Admin Diatrizoate Meglum/Diatrizoate Sod 120 ml 08/27/20 12:48 08/27/20 12:58 Gastrografin 37% PO 08/27/20 12:49 90 ml ONETIME ONE Administration Hydromorphone HCl 0.5 mg 08/27/20 11:21 08/27/20 11:44 Dilaudid IVPUSH 08/27/20 11:22 0.5 mg ONETIME ONE Administration Sodium Chloride 1,000 mls @ 999 mls/hr 08/27/20 10:51 08/27/20 10:57 Normal Saline IV 08/27/20 11:51 999 mls/hr ONETIME ONE Administration Iopamidol 100 ml 08/27/20 12:48 08/27/20 12:58 Isovue-300 (61%) IVPUSH 08/27/20 12:49 100 ml ONETIME ONE Administration Ondansetron HCl 4 mg 08/27/20 10:51 08/27/20 10:57 Zofran IVPUSH 08/27/20 10:52 4 mg ONETIME ONE Administration - Re-Assessments/Exams Free Text/Narrative Re-Assessment/Exam: Patient is a 54-year-old female presenting to the emergency department with complaints of crampy abdominal pain, nausea, vomiting, diarrhea, and headache since Friday. She does have a history of IBS and states that this instance has been lasting longer than her normal IBS flares. She has had no known fever. Denies any hematemesis or hematochezia. She has been using Zofran as well as dicyclomine, loperamide, and Levsin, however she has not taken these today. On exam, she did not have any abdominal tenderness. She states that the pain comes and goes and is generally associated with vomiting or diarrhea. I have ordered CBC, CMP, CRP, magnesium, lipase, urinalysis, and a CT scan of the abdomen pelvis with contrast. Her 1 L bolus of normal saline as she was orthostatic. I have also ordered Zofran 4 mg IV and Dilaudid 0.5 mg IV. 08/27/20 14:02 Hematology was grossly unremarkable. CT scan showed no acute abnormalities. Patient is feeling much better. I will send a prescription for Phenergan for nausea as she states this is worked well for her in the past. Recommend follow- up with her PCP if symptoms have not improved in the next day or 2. I will provide her with a note off from work tomorrow. Discharge instructions as documented. Departure - Departure Time of Disposition: 14:03 Disposition: Home, Self-Care 01 Condition: Good Clinical Impression: IBS (irritable bowel syndrome) Qualifiers: Irritable bowel syndrome type: with diarrhea Qualified Code(s): K58.0 - Irritable bowel syndrome with diarrhea - Discharge Information *PRESCRIPTION DRUG MONITORING PROGRAM REVIEWED*: No *COPY OF PRESCRIPTION DRUG MONITORING REPORT IN PATIENT ANNEMARIE: No Prescriptions: Promethazine [Phenergan] 25 mg PO Q6H PRN #12 tab PRN Reason: Nausea/Vomiting Instructions: Irritable Bowel Syndrome, Adult Referrals: Amanda Greco MD [Primary Care Provider] - Forms: ED Department Discharge, ED Return to Work/School Form Additional Instructions: You were seen in the emergency department today for abdominal pain, nausea, vomiting, diarrhea, and headache since Friday. Work-up included blood work, urinalysis, and a CT scan of your abdomen pelvis. Results of your work-up were found to be normal. You are likely experiencing a flare of your IBS. While in the ER, you received a liter of IV fluids, Dilaudid for pain, and Zofran for nausea which did improve your symptoms. Recommend clear liquid diet for the next few days. I sent a prescription for Phenergan for nausea to [facility]. Take this medication as prescribed. A note has been provided off from work for you. If you are still experiencing symptoms after a couple days, would recommend follow-up in the clinic. Return to the ER for any new or worsening symptoms of concern. Sepsis Event Note (ED) - Evaluation Sepsis Screening Result: No Definite Risk - Focused Exam Vital Signs: Vital Signs Temp Pulse Resp BP Pulse Ox 08/27/20 10:31 98.4 F 102 H 16 146/87 H 97 - My Orders Last 24 Hours: My Active Orders 08/27/20 10:52 Orthostatic Vital Signs [RC] ASDIRECTED 08/27/20 11:25 Abdomen Pelvis w Cont [CT] Stat 08/27/20 12:48 Sodium Chloride 0.9% [Saline Flush] 10 ml FLUSH ONETIME PRN - Assessment/Plan Last 24 Hours: My Active Orders 08/27/20 10:52 Orthostatic Vital Signs [RC] ASDIRECTED 08/27/20 11:25 Abdomen Pelvis w Cont [CT] Stat 08/27/20 12:48 Sodium Chloride 0.9% [Saline Flush] 10 ml FLUSH ONETIME PRN
--- NOTE | 2020-08-28 13:45 | CT ---
CT abdomen and pelvis Technique: Multiple axial sections were obtained from above the dome of the diaphragm inferiorly through the pubic symphysis. Intravenous contrast and oral contrast given. Delayed images were also obtained through the bladder. Reconstructed coronal and sagittal images were obtained. Comparison: Prior CT abdomen and pelvis exam of 08/27/19. Findings: Visualized lung bases shows slight dependent atelectasis. Liver shows fatty infiltration. No focal abnormalities appreciated. Spleen appears within normal limits. Surgical clips are seen from prior cholecystectomy. Adrenal glands show no nodule. Kidneys show symmetric contrast enhancement. Very small low density finding is seen within the left kidney believed to represent a very minimal cyst measuring about 6 mm. No additional abnormality is seen within the kidneys. Pancreas appears within normal limits. Aorta shows no aneurysm. No retroperitoneal adenopathy or mesenteric abnormalities are seen. Fat-containing umbilical hernia is noted. Several surgical clips are seen next to the spleen presumably from prior appendectomy. No pelvic mass or adenopathy is identified. Delayed images shows contrast within the distal ureters and within the bladder. Bone window settings were reviewed which shows mild scattered degenerative change throughout the spine. No acute osseous finding is appreciated. Impression: 1. Numerous findings as noted above which are stable from prior CT exam. 2. Nothing acute is definitely appreciated. Diagnostic code #2 I agree with preliminary report from [facility], finalized on 08/27/20, 2:18 PM PROCEDURAL NURSE
== END 2020-08-27 14:26 | disposition home or self-care (01) ==
LOC: JD.ED 10:04
DX: K58.0 Irritable bowel syndrome with diarrhea (principal); R51.9 Headache, unspecified; I10 Essential (primary) hypertension; M19.90 Unspecified osteoarthritis, unspecified site; F41.9 Anxiety disorder, unspecified; F32.9 Major depressive disorder, single episode, unspecified; E66.9 Obesity, unspecified; Z68.33 Body mass index [BMI] 33.0-33.9, adult; Z86.19 Personal history of other infectious and parasitic diseases; Z79.899 Other long term (current) drug therapy
CPT/HCPCS: 36415; 74177; 80053; 81001; 83690; 83735; 85025; 86140; 96374; 96375; 99284; J1170; J2405; J7030; Q9963; Q9967